=== PATIENT | male | born 1995 | race Caucasian/White ===

== ENCOUNTER 2017-01-13 23:42 | Emergency (ER) | payer OTHER ==
[~2017-01-13] VITALS: Ht 175.3 cm; Wt 77.3 kg
[~2017-01-13 23:42] MED LIST: BUPR100T8 PO; TOPI50TA16 PO
[2017-01-13 23:45] VITALS: TEMP 37.1; Ht 175.3 cm; Wt 77.3 kg
[2017-01-14 00:44] LABS: BASO % 0.3 %; BASO ABS # 0.02 K/uL (0-0.2); COMPLETE YES; EOS % 2.9 %; HEMATOCRIT 44.7 % (42-52); LYMPH % 34.5 %; LYMPH ABS # 2.53 K/uL (1.2-3.4); MEAN CELL VOLUME 85.5 fL (80-100); MEAN CORPUSCULAR HEMOGLOBIN 29.6 pg (25-34); MEAN CORPUSCULAR HGB CONC 34.7 g/dl (32-36); MEAN PLATELET VOLUME 8.8 fL (7.4-10.4); MONO % 6.1 %; NEUT % 56.2 %; PLATELET COUNT 206 K/uL (130-400); RED BLOOD COUNT 5.23 M/uL (4.7-6.1); WHITE BLOOD COUNT 7.33 K/uL (4.8-10.8)
[2017-01-14 01:03] LABS: BUN/CREATININE RATIO 11.8 (10-20); CREATININE 1.4 mg/dl (0.60-1.40); MAGNESIUM 2.1 mg/dl (1.8-2.4); POTASSIUM 3.7 mmol/L (3.5-5.1)
[2017-01-14 01:13] LABS: THYROID STIMULATING HORMONE 1.24 uIu/ml (0.300-4.500)
--- NOTE | 2017-01-14 01:34 | EMERGENCY ROOM VISIT NOTE ---
History First contact with patient: 00:05 Chief Complaint: NEURO SYMPTOMS Stated Complaint: DIZZINESS,LOSS OF COORDINATION,TINGLING LT SIDE Nursing Triage Summary: Pt reports that he restarted his topamax today. pt has been off of it for 2 years. c/o intermittent numbness in face, left arm, left leg and back. pt also reports trouble walking. hx bipolar. History of Present Illness The patient is a 21 year old male who presents to the Emergency Room with complaints of numbness, tingling and difficulty concentrating after taking 100 mg of Topamax for the first time tonight. Patient states his PCP started this on him today for his bipolar. He's never taken this medication before. No other new foods soaps or detergents. Patient denies chest pain, dyspnea, localized weakness, loss of vision, cold symptoms, fever, chills, confusion, abdominal pain, rashes. He is tolerating by mouth fluids and food. Review of Systems See HPI for pertinent positives & negatives. A total of 10 systems reviewed and were otherwise negative. Past Medical/Surgical History Medical Problems: (1) Bipolar disorder Family History No pertinent family history Social History Smoking Status: Never Smoker Alcohol Use: none Drug Use: none Housing Status: lives alone Current/Historical Medications Scheduled Topiramate (Topamax), 50 MG PO QAM Topiramate (Topamax), 100 MG PO HS Physical Exam Vital Signs Date Time Temp Pulse Resp B/P (MAP) Pulse Ox O2 Delivery O2 Flow Rate FiO2 01/14/17 00:54 58 01/14/17 00:38 Room Air 01/14/17 00:38 53 12 135/94 97 52 151/111 60 164/101 01/13/17 23:45 37.1 58 18 149/111 97 Room Air Physical Exam VITALS: Vitals are noted on the nurse's note and reviewed by myself. Vital signs stable. GENERAL: Pleasant male answering questions appropriately, in no acute distress, nondiaphoretic, well-developed well-nourished. SKIN: The skin was without rashes, erythema, edema, or bruising. There is no tenting of the skin. Capillary reflex less than 2 seconds. HEAD: Normocephalic atraumatic. EARS: External auditory canals clear, tympanic membranes pearly lai without erythema or effusion bilaterally. EYES: Pupils equal round and reactive to light and accommodation. Conjunctivae without injection, sclerae without icterus. Extraocular movements intact. NOSE: Patent, turbinates without inflammation or discharge. MOUTH: Mucous membranes moist. Pharynx without erythema or exudate. Uvula midline. Airway patent. Tongue does not deviate. NECK: Supple without nuchal rigidity. No lymphadenopathy. No thyromegaly. Cervical spine is nontender. No JVD. HEART: Regular rate and rhythm without murmurs gallops or rubs. LUNGS: Clear to auscultation bilaterally without wheezes, rales or rhonchi. No dullness to percussion. No retractions or accessory muscle use. ABDOMEN: Positive bowel sounds x 4. Normal tympanic percussion. Soft, nontender, without masses or organomegaly. Chacon sign negative. No guarding or rebound tenderness. MUSCULOSKELETAL: No muscle atrophy, erythema, or edema noted. NEURO: Patient was alert and oriented to person place and time. Normal sensation to light and sharp touch. No focal neurological deficits. Cranial nerves II-12 grossly intact. No pronator drift. Cerebellar exam intact. Medical Decision & Procedures Laboratory Results 01/14/17 00:30 Red Blood Count 5.23, Mean Corpuscular Volume 85.5, Mean Corpuscular Hemoglobin 29.6, Mean Corpuscular Hemoglobin Concent 34.7, Mean Platelet Volume 8.8, Neutrophils (%) (Auto) 56.2, Lymphocytes (%) (Auto) 34.5, Monocytes (%) (Auto) 6.1, Eosinophils (%) (Auto) 2.9, Basophils (%) (Auto) 0.3, Neutrophils # (Auto) 4.12, Lymphocytes # (Auto) 2.53, Monocytes # (Auto) 0.45, Eosinophils # (Auto) 0.21, Basophils # (Auto) 0.02 01/14/17 00:30 Test 01/14/17 00:30 White Blood Count 7.33 K/uL (4.8-10.8) Red Blood Count 5.23 M/uL (4.7-6.1) Hemoglobin 15.5 g/dL (14.0-18.0) Hematocrit 44.7 % (42-52) Mean Corpuscular Volume 85.5 fL (80-100) Mean Corpuscular Hemoglobin 29.6 pg (25-34) Mean Corpuscular Hemoglobin Concent 34.7 g/dl (32-36) Platelet Count 206 K/uL (130-400) Mean Platelet Volume 8.8 fL (7.4-10.4) Neutrophils (%) (Auto) 56.2 % Lymphocytes (%) (Auto) 34.5 % Monocytes (%) (Auto) 6.1 % Eosinophils (%) (Auto) 2.9 % Basophils (%) (Auto) 0.3 % Neutrophils # (Auto) 4.12 K/uL (1.4-6.5) Lymphocytes # (Auto) 2.53 K/uL (1.2-3.4) Monocytes # (Auto) 0.45 K/uL (0.11-0.59) Eosinophils # (Auto) 0.21 K/uL (0-0.5) Basophils # (Auto) 0.02 K/uL (0-0.2) RDW Standard Deviation 39.0 fL (36.4-46.3) RDW Coefficient of Variation 12.5 % (11.5-14.5) Immature Granulocyte % (Auto) 0.0 % Immature Granulocyte # (Auto) 0.00 K/uL (0.00-0.02) Anion Gap 3.0 mmol/L (3-11) Est Creatinine Clear Calc Drug Dose 82.1 ml/min Estimated GFR () 81.5 Estimated GFR (Non- 70.3 BUN/Creatinine Ratio 11.8 (10-20) Calcium Level 9.0 mg/dl (8.5-10.1) Magnesium Level 2.1 mg/dl (1.8-2.4) Total Bilirubin 0.8 mg/dl (0.2-1) Direct Bilirubin 0.2 mg/dl (0-0.2) Aspartate Amino Transf (AST/SGOT) 33 U/L (15-37) Alanine Aminotransferase (ALT/SGPT) 24 U/L (12-78) Alkaline Phosphatase 67 U/L (45-117) Total Protein 7.5 gm/dl (6.4-8.2) Albumin 4.3 gm/dl (3.4-5.0) Thyroid Stimulating Hormone (TSH) 1.240 uIu/ml (0.300-4.500) ED Course Prior records/ancillary studies reviewed and summarized above. Nursing notes reviewed. Additional history obtained from friends The patient's history was concerning for numbness, tingling, difficulty concentrating after taking Topamax. Differential diagnosis: Etiologies such as side effects of medication, metabolic, infection, hypo/ hyperglycemia, electrolyte abnormalities, cardiac sources, intracerebral event, toxicologic, neurologic, as well as others were entertained. Physical examination: As above. ER treatment provided: IV Lock On reassessment the patient felt better. Diagnostics interpretation by me: The labs revealed no worrisome leukocytosis or electrolyte abnormality. Exam and history seem consistent with side effect of Topamax. he was informed that he should start slowly on this medication and gradually increase on this over time. He was advised to call his family care doctor this morning for follow-up and not to take this medication until cleared by the family care doctor. He was advised to return to the ER immediately for localized weakness, chest pain, difficulty breathing, worsening signs or symptoms or as needed. By the evaluation outlined above emergent etiologies such as infection, electrolyte abnormalities, cardiac sources, intracerebral event, toxologic, neurologic, abnormalities blood glucose, metabolic, as well as others were deemed relatively unlikely. The pt informed about the findings as listed above. All questions were answered and pleased with the treatment. Return instructions were outlined and the patient was discharged in stable condition. Case reviewed with my attending Referral: The patient was referred back to primary care physician for follow-up in 2 to 3 days for a recheck of the current condition. Medical Decision As above Medication Reconcilliation Current Medication List: was personally reviewed by me Blood Pressure Screening Patient's blood pressure: Elevated blood pressure Blood pressure disposition: Elevated BP felt to be situational Impression Primary Impression: Tingling Additional Impression: Medication side effect Departure Information Dispostion Home / Self-Care Condition GOOD Forms WORK / SCHOOL INSTRUCTIONS, HOME CARE DOCUMENTATION FORM, IMPORTANT VISIT INFORMATION Patient Instructions My [facility] Metabol[facility], Topiramate tablets Additional Instructions Do not take anymore Topamax until seen by the family care doctor. You should be slowly increased on this medication over time. Your symptoms will most likely be present for a few more days or up to a week. Follow-up family care doctor in one to 2 days, call for an appointment. Return to ER sooner for chest pain, difficulty breathing, worsening signs or symptoms or as needed. Problem Qualifiers Additional Impression: Medication side effect Encounter type: initial encounter Qualified Codes: T88.7XXA - Unspecified adverse effect of drug or medicament, initial encounter
[2017-01-14 01:35] VITALS: BP 136/82; PULSE 63; O2SAT 96
== END 2017-01-14 01:35 | disposition home or self-care (01) ==
LOC: C.EDB 23:44 → C.EDA 01-14 01:35
DX: R20.2 Paresthesia of skin (principal); T88.7XXA Unspecified adverse effect of drug or medicament, initial encounter; F31.9 Bipolar disorder, unspecified

== ENCOUNTER 2017-01-17 02:20 | Emergency (ER) | payer OTHER ==
[~2017-01-17] VITALS: Ht 175.3 cm; Wt 78.0 kg
[~2017-01-17 02:20] MED LIST changes: -BUPR100T8 PO
[2017-01-17 02:23] VITALS: TEMP 36.8; Ht 175.3 cm; Wt 78.0 kg
[2017-01-17 02:53] LABS: BASO % 0.3 %; BASO ABS # 0.02 K/uL (0-0.2); COMPLETE YES; HEMATOCRIT 47.3 % (42-52); IG% 0.2 %; LYMPH % 34.8 %; LYMPH ABS # 2.23 K/uL (1.2-3.4); MEAN CELL VOLUME 84.2 fL (80-100); MEAN CORPUSCULAR HEMOGLOBIN 30.4 pg (25-34); MEAN CORPUSCULAR HGB CONC 36.2 g/dl (32-36); MEAN PLATELET VOLUME 9.1 fL (7.4-10.4); MONO % 6.3 %; NEUT % 55.4 %; PLATELET COUNT 236 K/uL (130-400); RED BLOOD COUNT 5.62 M/uL (4.7-6.1)
[2017-01-17 02:55] LABS: URINE APPEARANCE CLEAR (CLEAR); URINE BILIRUBIN NEG (NEG); URINE COLOR YELLOW; URINE NITRITE NEG (NEG); URINE SPECIFIC GRAVITY 1.011 (1.000-1.030); UROBILINOGEN NEG (NEG)
[2017-01-17 02:56] VITALS: O2SAT 96
[2017-01-17 03:02] LABS: MANUAL MICROSCOPIC REQUIRED? NO; REVIEW REQ? NO
[2017-01-17 03:13] LABS: BUN/CREATININE RATIO 12.7 (10-20); CALCIUM 9.5 mg/dl (8.5-10.1); CREATININE 1.2 mg/dl (0.60-1.40); POTASSIUM 3.4 mmol/L (3.5-5.1)
[2017-01-17 03:16] LABS: BENZODIAZEPINE, URINE NEG (NEG); COCAINE,URINE NEG (NEG); PHENCYCLIDINE, URINE NEG (NEG)
[2017-01-17] MEDS ORDERED: LORAZEPAM 2 MG/ML 1 ML VIAL IV STA (03:20)
[2017-01-17 03:25] LABS: THYROID STIMULATING HORMONE 1.47 uIu/ml (0.300-4.500)
[2017-01-17] MEDS ORDERED: LORAZEPAM 1 MG TAB SL STA (03:31)
--- NOTE | 2017-01-17 04:44 | EMERGENCY ROOM VISIT NOTE ---
History First contact with patient: 02:25 Chief Complaint: ANXIETY Stated Complaint: ANXIETY/PALPITATIONS History of Present Illness The patient is a 21 year old male who presents to the Emergency Room with complaints of feeling anxious for the past several days who is been trying to get in with behavioral health. Patient does not currently have a therapist or psychiatrist. He was placed on Topamax 100 mg by the family care for a mood stabilizer but had side effects to this. They then decreased to 50 mg but he was still having side effects. Patient still complains of difficulty concentrating and tingling. He states it is getting better then the other day when I saw him. Patient was hospitalized several years ago at the [facility]. Patient denies suicidal or homicidal ideations, delusions, hallucinations, chest pain, dyspnea, fever, chills, cough, congestion, localized weakness. He is tolerating by mouth fluids and food. Review of Systems See HPI for pertinent positives & negatives. A total of 10 systems reviewed and were otherwise negative. Past Medical/Surgical History Medical Problems: (1) Bipolar disorder Family History No pertinent family history Social History Smoking Status: Never Smoker Alcohol Use: none Drug Use: none Marital Status: single Housing Status: lives alone Occupation Status: employed Current/Historical Medications No Active Prescriptions or Reported Meds Allergies Coded Allergies: Acetaminophen (Verified Allergy, Unknown, ITCHING ALL OVER, 01/17/17) Oxycodone (Verified Allergy, Unknown, ITCHING ALL OVER, 01/17/17) Physical Exam Vital Signs Date Time Temp Pulse Resp B/P (MAP) Pulse Ox O2 Delivery O2 Flow Rate FiO2 01/17/17 04:40 54 18 128/81 96 Room Air 01/17/17 03:54 79 18 98 Room Air 01/17/17 02:56 57 18 126/82 96 Room Air 01/17/17 02:56 96 Room Air 01/17/17 02:41 60 18 98 Room Air 01/17/17 02:23 36.8 59 18 161/116 97 Room Air 01/17/17 02:22 65 Physical Exam VITALS: Vitals are noted on the nurse's note and reviewed by myself. Vital signs stable. GENERAL: Pleasant male anxious-appearing, in no acute distress, nondiaphoretic, well-developed well-nourished. SKIN: The skin was without rashes, erythema, edema, or bruising. There is no tenting of the skin. Capillary reflex less than 2 seconds. HEAD: Normocephalic atraumatic. EARS: External auditory canals clear, tympanic membranes pearly lai without erythema or effusion bilaterally. EYES: Pupils equal round and reactive to light and accommodation. Conjunctivae without injection, sclerae without icterus. Extraocular movements intact. NOSE: Patent, turbinates without inflammation or discharge. MOUTH: Mucous membranes moist. Pharynx without erythema or exudate. Uvula midline. Airway patent. Tongue does not deviate. NECK: Supple without nuchal rigidity. No lymphadenopathy. No thyromegaly. Cervical spine is nontender. No JVD. HEART: Regular rate and rhythm without murmurs gallops or rubs. LUNGS: Clear to auscultation bilaterally without wheezes, rales or rhonchi. No dullness to percussion. No retractions or accessory muscle use. ABDOMEN: Positive bowel sounds x 4. Normal tympanic percussion. Soft, nontender, without masses or organomegaly. Chacon sign negative. No guarding or rebound tenderness. MUSCULOSKELETAL: No muscle atrophy, erythema, or edema noted. NEURO: Patient was alert and oriented to person place and time. Normal sensation to light and sharp touch. No focal neurological deficits. Psych: Pleasant and cooperative with good thought process Medical Decision & Procedures Laboratory Results 01/17/17 02:40 Red Blood Count 5.62, Mean Corpuscular Volume 84.2, Mean Corpuscular Hemoglobin 30.4, Mean Corpuscular Hemoglobin Concent 36.2, Mean Platelet Volume 9.1, Neutrophils (%) (Auto) 55.4, Lymphocytes (%) (Auto) 34.8, Monocytes (%) (Auto) 6.3, Eosinophils (%) (Auto) 3.0, Basophils (%) (Auto) 0.3, Neutrophils # (Auto) 3.55, Lymphocytes # (Auto) 2.23, Monocytes # (Auto) 0.40, Eosinophils # (Auto) 0.19, Basophils # (Auto) 0.02 01/17/17 02:40 Test 01/17/17 02:35 01/17/17 02:40 Urine Color YELLOW Urine Appearance CLEAR (CLEAR) Urine pH 7.0 (4.5-7.5) Urine Specific [place] 1.011 (1.000-1.030) Urine Protein NEG (NEG) Urine Glucose (UA) NEG (NEG) Urine Ketones NEG (NEG) Urine Occult Blood NEG (NEG) Urine Nitrite NEG (NEG) Urine Bilirubin NEG (NEG) Urine Urobilinogen NEG (NEG) Urine Leukocyte Esterase NEG (NEG) Urine Opiates Screen NEG (NEG) Urine Methadone, Qualitative NEG (NEG) Urine Barbiturates NEG (NEG) Urine Phencyclidine (PCP) Level NEG (NEG) Ur Amphetamine/Methamphetamine NEG (NEG) MDMA (Ecstasy) Screen NEG (NEG) Urine Benzodiazepines Screen NEG (NEG) Urine Cocaine Metabolite NEG (NEG) Urine Marijuana (THC) NEG (NEG) White Blood Count 6.40 K/uL (4.8-10.8) Red Blood Count 5.62 M/uL (4.7-6.1) Hemoglobin 17.1 g/dL (14.0-18.0) Hematocrit 47.3 % (42-52) Mean Corpuscular Volume 84.2 fL (80-100) Mean Corpuscular Hemoglobin 30.4 pg (25-34) Mean Corpuscular Hemoglobin Concent 36.2 g/dl (32-36) Platelet Count 236 K/uL (130-400) Mean Platelet Volume 9.1 fL (7.4-10.4) Neutrophils (%) (Auto) 55.4 % Lymphocytes (%) (Auto) 34.8 % Monocytes (%) (Auto) 6.3 % Eosinophils (%) (Auto) 3.0 % Basophils (%) (Auto) 0.3 % Neutrophils # (Auto) 3.55 K/uL (1.4-6.5) Lymphocytes # (Auto) 2.23 K/uL (1.2-3.4) Monocytes # (Auto) 0.40 K/uL (0.11-0.59) Eosinophils # (Auto) 0.19 K/uL (0-0.5) Basophils # (Auto) 0.02 K/uL (0-0.2) RDW Standard Deviation 37.6 fL (36.4-46.3) RDW Coefficient of Variation 12.3 % (11.5-14.5) Immature Granulocyte % (Auto) 0.2 % Immature Granulocyte # (Auto) 0.01 K/uL (0.00-0.02) Anion Gap 6.0 mmol/L (3-11) Est Creatinine Clear Calc Drug Dose 95.8 ml/min Estimated GFR () 98.2 Estimated GFR (Non- 84.7 BUN/Creatinine Ratio 12.7 (10-20) Calcium Level 9.5 mg/dl (8.5-10.1) Total Bilirubin 1.2 mg/dl (0.2-1) Direct Bilirubin 0.3 mg/dl (0-0.2) Aspartate Amino Transf (AST/SGOT) 42 U/L (15-37) Alanine Aminotransferase (ALT/SGPT) 31 U/L (12-78) Alkaline Phosphatase 74 U/L (45-117) Total Protein 8.4 gm/dl (6.4-8.2) Albumin 4.8 gm/dl (3.4-5.0) Thyroid Stimulating Hormone (TSH) 1.470 uIu/ml (0.300-4.500) Medications Administered Medications (Trade) Dose Ordered Sig/Daniel Route Start Time Stop Time Status Last Admin Dose Admin Lorazepam (Ativan Tab) 1 mg NOW STAT SL 01/17/17 03:31 01/17/17 03:32 DC 01/17/17 03:39 1 MG ED Course Prior records/ancillary studies reviewed. Triage Nursing notes reviewed. The patient's history was concerning for possible psychiatric disturbance. Differential diagnosis: Etiologies such as mood disorder, infection, hypoglycemia, electrolyte abnormalities, cardiac sources, intracerebral event, toxicologic, neurologic, as well as others were entertained. Physical examination: The physical examination was performed as above and was completely benign. No emergent medical pathologies were noted. ER treatment provided: pt was observed On reassessment the patient felt better. Diagnostic interpretation by me: EKG: Normal sinus, normal intervals, no acute ST-T wave changes, rate of 54. Impression sinus bradycardia interpreted by myself The labs revealed euthyroid. Stable H&H Consultation: A consultation was placed with mental health. The patient was evaluated by mental health in the emergency department and they felt admission was not warranted. The patient was given information for [facility] for referral. Patient has seen Dr. Kenny in the past. Exam and history seem consistent with anxiety. Patient was advised not to take Topamax in the future unless recommended by the psychiatrist. Patient's been having side effects at this medication. Behavioral health evaluated the patient states he's safe to be discharged home. I felt this is resolved. He was not at risk for hurting himself or any other people. He had a good thought process. Patient was advised to follow-up with Dr. kenny or here in the ER sooner for thoughts of hurting himself, depression, anxiety, chest pain, dyspnea , worsening signs or symptoms or as needed.By the evaluation outlined above emergent etiologies such as infection, hypoglycemia, electrolyte abnormalities, cardiac sources, intracerebral event, toxicologic, neurologic,as well as others were deemed relatively unlikely. It appears the patient is dealing with a psychiatric disturbance. The pt informed about the findings as listed above. All questions were answered and pleased with the treatment. Return instructions were outlined and the patient was discharged in stable condition. Referral: Outpatient services were arranged by psychiatry. The patient will follow-up this week or return to the emergency department if symptoms worsen. and The patient was referred back to their primary care physician for follow-up in 2 to 3 days for a recheck of the current condition. case reviewed by my Attending. Medical Decision As above Impression Primary Impression: Acute anxiety Departure Information Dispostion Home / Self-Care Condition GOOD Prescriptions No Active Prescriptions or Reported Meds Referrals No Doctor, Assigned (PCP) Patient Instructions My [facility] Additional Instructions Stop your Topamax. Follow-up with psychiatry. Please contact Dr. kenny. Behavioral health gave either contact information. Rest and drink plenty of fluids as tolerated. Continue current medications. Return to the ER immediately for worsening or persistent anxiety, abdominal pain , vomiting, fevers, chest pains, difficulty breathing, worsening of your condition, or as needed. Follow up with your primary physician in 2-3 days for a recheck of your current condition.
[2017-01-17 05:21] VITALS: BP 104/69; PULSE 56; O2SAT 96
[2017-01-18] MEDS ORDERED: TOPI100T20 PO (22:44)
[2017-01-18] MEDS ORDERED: TPM100 PO (22:44)
== END 2017-01-17 05:22 | disposition home or self-care (01) ==
LOC: EDBD 02:20 → C.EDA 02:23
DX: F41.9 Anxiety disorder, unspecified (principal); R00.2 Palpitations; F31.9 Bipolar disorder, unspecified

== ENCOUNTER 2017-01-18 01:30 | Emergency (ER) | payer OTHER ==
[~2017-01-18] VITALS: Ht 175.3 cm; Wt 75.5 kg
[2017-01-18 01:38] VITALS: TEMP 36.6; Ht 175.3 cm; Wt 75.5 kg
[2017-01-18 03:33] VITALS: BP 155/110; PULSE 72; O2SAT 99
--- NOTE | 2017-01-18 03:47 | EMERGENCY ROOM VISIT NOTE ---
History First contact with patient: 02:09 Chief Complaint: OTHER COMPLAINT Stated Complaint: SIDE EFFECTS OF 2 MEDS-HEART PALPITATIONS,CONGESTI History of Present Illness The patient is a 21 year old male who presents to the Emergency Room with complaints of ongoing anxiety, difficulty concentrating, intermittent numbness and tingling the past several days. Patient states he does not feel any better from the last visit from yesterday. Patient does not have a follow-up appointment yet with psychiatry. He was evaluated by mental health yesterday and and was advised to follow-up with some point and with Dr. Kenny who he has seen in the past. Patient was also informed yesterday by myself to quit taking the Topamax. He was also informed yesterday that symptoms from the Topamax could last a week or 2. Patient states he would like to be evaluated by behavioral health again. He states he would like to possibly be admitted to the medicine again. Patient denies suicidal or homicidal ideations. Patient states occasionally he sees things that aren't there but cannot specify anything in particular. Patient denies alcohol or drug use. Patient states his Lasix was up yesterday. Patient denies chest pain, dyspnea, fever, chills, cough, congestion, abdominal pain, head injury. Review of Systems See HPI for pertinent positives & negatives. A total of 10 systems reviewed and were otherwise negative. Past Medical/Surgical History Medical Problems: (1) Bipolar disorder Family History No pertinent family history Social History Smoking Status: Never Smoker Alcohol Use: none Drug Use: none Marital Status: single Housing Status: lives alone Occupation Status: employed Current/Historical Medications No Active Prescriptions or Reported Meds Physical Exam Vital Signs Date Time Temp Pulse Resp B/P (MAP) Pulse Ox O2 Delivery O2 Flow Rate FiO2 01/18/17 01:38 36.6 79 16 147/99 99 Room Air Physical Exam VITALS: Vitals are noted on the nurse's note and reviewed by myself. Vital signs stable. GENERAL: Pleasant male cooperative, in no acute distress, nondiaphoretic, well- developed well-nourished. SKIN: The skin was without rashes, erythema, edema, or bruising. There is no tenting of the skin. Capillary reflex less than 2 seconds. HEAD: Normocephalic atraumatic. EARS: External auditory canals clear, tympanic membranes pearly lai without erythema or effusion bilaterally. EYES: Pupils equal round and reactive to light and accommodation. Conjunctivae without injection, sclerae without icterus. Extraocular movements intact. NOSE: Patent, turbinates without inflammation or discharge. MOUTH: Mucous membranes moist. Pharynx without erythema or exudate. Uvula midline. Airway patent. Tongue does not deviate. NECK: Supple without nuchal rigidity. No lymphadenopathy. No thyromegaly. Cervical spine is nontender. No JVD. HEART: Regular rate and rhythm without murmurs gallops or rubs. LUNGS: Clear to auscultation bilaterally without wheezes, rales or rhonchi. No dullness to percussion. No retractions or accessory muscle use. ABDOMEN: Positive bowel sounds x 4. Normal tympanic percussion. Soft, nontender, without masses or organomegaly. Chacon sign negative. No guarding or rebound tenderness. MUSCULOSKELETAL: No muscle atrophy, erythema, or edema noted. NEURO: Patient was alert and oriented to person place and time. Normal sensation to light and sharp touch. No focal neurological deficits. Psych: Pleasant and cooperative alert and oriented to person place and time and situation Medical Decision & Procedures ED Course Prior records/ancillary studies reviewed. Triage Nursing notes reviewed. The patient's history was concerning for possible psychiatric disturbance. Differential diagnosis: Etiologies such as mood disorder, infection, attention seeking, hypoglycemia, electrolyte abnormalities, cardiac sources, intracerebral event, toxicologic, neurologic, as well as others were entertained. Physical examination: The physical examination was performed as above and was completely benign. No emergent medical pathologies were noted. ER treatment provided: Patient was observed On reassessment the patient felt better. Diagnostic interpretation by me: No diagnostic studies were performed based upon the history and physical examination. Labs from yesterday were reviewed. Stable H&H and euthyroid from yesterday. Consultation: A consultation was placed with Neto beatty. The patient was evaluated by mental health in the emergency department and they felt admission was not warranted. The patient will FU with [facility] outpatient. Patient signed ROR paperwork. Exam and history seem consistent with anxiety. Patient had no suicidal or homicidal ideations. He was well-appearing. He was cleared from behavioral health. This is the patient's third visit for the same complaint. He was strongly encouraged to see a therapist and psychiatrist and this was arranged by behavioral health services. He was advised to return to the ER really for hallucinations, delusions, suicidal or homicidal ideations, worsening signs or symptoms or as needed. By the evaluation outlined above emergent etiologies such as infection, hypoglycemia, electrolyte abnormalities, cardiac sources, intracerebral event, toxicologic, neurologic,as well as others were deemed relatively unlikely. It appears the patient is dealing with a psychiatric disturbance. The pt informed about the findings as listed above. All questions were answered and pleased with the treatment. Return instructions were outlined and the patient was discharged in stable condition. Referral: Outpatient services were arranged by psychiatry. The patient will follow-up this week or return to the emergency department if symptoms worsen. and The patient was referred back to their primary care physician for follow-up in 2 to 3 days for a recheck of the current condition. Case reviewed with my attending. Medical Decision As above Medication Reconcilliation Current Medication List: was personally reviewed by me Blood Pressure Screening Patient's blood pressure: Normal blood pressure Impression Primary Impression: Acute anxiety Departure Information Dispostion Home / Self-Care Condition GOOD Prescriptions No Active Prescriptions or Reported Meds Referrals No Doctor, Assigned (PCP) Patient Instructions My [facility] Additional Instructions Stop your Topamax. Follow-up with psychiatry. Please contact Dr. Kenny. Behavioral health will be contacting you today in order to make a follow-up appointment with your psychiatrist. Rest and drink plenty of fluids as tolerated. Continue current medications. Return to the ER immediately for worsening or persistent anxiety, abdominal pain , vomiting, fevers, chest pains, difficulty breathing, worsening of your condition, or as needed. Follow up with your primary physician in 2-3 days for a recheck of your current condition.
[2017-01-18] MEDS ORDERED: TPM100 PO (22:44)
[2017-01-18] MEDS ORDERED: TOPI100T20 PO (22:44)
== END 2017-01-18 04:16 | disposition home or self-care (01) ==
LOC: C.EDB 01:33 → C.EDA 04:16
DX: F41.9 Anxiety disorder, unspecified (principal); F31.9 Bipolar disorder, unspecified

== ENCOUNTER 2017-01-18 22:07 | Emergency (ER) | payer OTHER ==
[~2017-01-18] VITALS: Ht 175.3 cm; Wt 75.5 kg
[2017-01-18 22:07] VITALS: Ht 175.3 cm; Wt 75.5 kg
[2017-01-18] MEDS ORDERED: TOPI100T20 PO (22:44)
[2017-01-18] MEDS ORDERED: TPM100 PO (22:44)
[2017-01-18 22:53] LABS: BASO % 0.3 %; BASO ABS # 0.02 K/uL (0-0.2); COMPLETE YES; EOS % 0.5 %; HEMATOCRIT 44.6 % (42-52); IG% 0.1 %; LYMPH % 20.3 %; LYMPH ABS # 1.54 K/uL (1.2-3.4); MEAN CELL VOLUME 83.7 fL (80-100); MEAN CORPUSCULAR HEMOGLOBIN 29.8 pg (25-34); MEAN CORPUSCULAR HGB CONC 35.7 g/dl (32-36); MEAN PLATELET VOLUME 8.8 fL (7.4-10.4); MONO % 6.5 %; NEUT % 72.3 %; PLATELET COUNT 243 K/uL (130-400); RED BLOOD COUNT 5.33 M/uL (4.7-6.1); WHITE BLOOD COUNT 7.59 K/uL (4.8-10.8)
[2017-01-18 23:10] LABS: BUN/CREATININE RATIO 13.5 (10-20); CALCIUM 9.8 mg/dl (8.5-10.1); CREATININE 1.6 mg/dl (0.60-1.40); POTASSIUM 3.3 mmol/L (3.5-5.1)
[2017-01-18 23:21] LABS: ACETAMINOPHEN < 2 ug/ml (10-30); ALB/GLOB RATIO 1.4 (0.9-2); THYROID STIMULATING HORMONE 1.12 uIu/ml (0.300-4.500)
--- NOTE | 2017-01-18 23:21 | EMERGENCY ROOM VISIT NOTE ---
History Report prepared by Franny: Manju Medley Under the Supervision of: Dr. Maverick Avalos M.D. 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 The patient states that he was scaring his roommate tonight and she called the police. He reports that he was trying to explain something to her but he cannot remember what it was. He notes that the police were called and the police state that he resisted coming in to the ED. The patient states that he has not been having clear thoughts and states that his medications were recently changed to Topamax and Xanax and he is not sure if he hasn't taken them or if he overdosed on them. He complains of unclear thoughts and reports that he has not gotten much sleep in the last few days. The patient reports that he feels like he is having both auditory and visual hallucinations. 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 He denies any fever, chills, cough, congestion, nausea, and vomiting. The patient states that this feels like his previous manic episodes. The patient's mother states that the patient was not on any medication for years but was recently put back on Topamax and after feeling some side effects he has been decreasing the dose and has now stopped taking it. Source of History: patient, parent Onset: just PHARMACEUTICAL WORKER Position: other (mental health) Quality: other (manic) Associated Symptoms: + abdominal pain, + back pain, No fevers, No chills, No cough, No nausea, No vomiting Review of Systems See HPI for pertinent positives and negatives. ROS limited in the setting of acute susan. Past Medical & Surgical Medical Problems: (1) Bipolar disorder Family History No pertinent family history Social History Smoking Status: Never Smoker Alcohol Use: none Drug Use: none Marital Status: single Housing Status: lives alone Occupation Status: employed Current/Historical Medications Scheduled Topiramate (Topiramate), 100 MG PO QAM Topiramate (Topamax), 200 MG PO HS Allergies Coded Allergies: Acetaminophen (Verified Allergy, Unknown, ITCHING ALL OVER, 01/18/17) Oxycodone (Verified Allergy, Unknown, ITCHING ALL OVER, 01/18/17) Physical Exam Vital Signs Date Time Temp Pulse Resp B/P (MAP) Pulse Ox O2 Delivery O2 Flow Rate FiO2 01/19/17 01:49 78 20 154/101 98 Room Air 01/19/17 00:40 90 24 144/98 98 Room Air 01/18/17 22:07 37.2 118 20 107/88 95 Room Air Physical Exam GENERAL: Awake, alert, well-appearing, in no distress HENT: Normocephalic, atraumatic. Oropharynx unremarkable. EYES: Normal conjunctiva. Sclera non-icteric. NECK: Supple. No nuchal rigidity. FROM. No JVD. RESPIRATORY: Clear to auscultation. CARDIAC: Regular rate, normal rhythm. Extremities warm and well perfused. Pulses equal. ABDOMEN: Soft, non-distended. No tenderness to palpation. No rebound or guarding. No masses. RECTAL: Deferred. MUSCULOSKELETAL: Chest examination reveals no tenderness. The back is symmetrical on inspection without obvious abnormality. There is no CVA tenderness to palpation. No joint edema. LOWER EXTREMITIES: Calves are equal size bilaterally and non-tender. No edema. No discoloration. NEURO: Normal sensorium. No sensory or motor deficits noted. SKIN: No rash or jaundice noted. PSYCH: Tangential incoherent thought process. Denies suicidal and homicidal ideation. Reports question of auditory and visual hallucinations. Medical Decision & Procedures Laboratory Results 01/18/17 22:38 Red Blood Count 5.33, Mean Corpuscular Volume 83.7, Mean Corpuscular Hemoglobin 29.8, Mean Corpuscular Hemoglobin Concent 35.7, Mean Platelet Volume 8.8, Neutrophils (%) (Auto) 72.3, Lymphocytes (%) (Auto) 20.3, Monocytes (%) (Auto) 6.5, Eosinophils (%) (Auto) 0.5, Basophils (%) (Auto) 0.3, Neutrophils # (Auto) 5.49, Lymphocytes # (Auto) 1.54, Monocytes # (Auto) 0.49, Eosinophils # (Auto) 0.04, Basophils # (Auto) 0.02 01/18/17 22:38 Test 01/18/17 22:38 01/19/17 01:40 White Blood Count 7.59 K/uL (4.8-10.8) Red Blood Count 5.33 M/uL (4.7-6.1) Hemoglobin 15.9 g/dL (14.0-18.0) Hematocrit 44.6 % (42-52) Mean Corpuscular Volume 83.7 fL (80-100) Mean Corpuscular Hemoglobin 29.8 pg (25-34) Mean Corpuscular Hemoglobin Concent 35.7 g/dl (32-36) Platelet Count 243 K/uL (130-400) Mean Platelet Volume 8.8 fL (7.4-10.4) Neutrophils (%) (Auto) 72.3 % Lymphocytes (%) (Auto) 20.3 % Monocytes (%) (Auto) 6.5 % Eosinophils (%) (Auto) 0.5 % Basophils (%) (Auto) 0.3 % Neutrophils # (Auto) 5.49 K/uL (1.4-6.5) Lymphocytes # (Auto) 1.54 K/uL (1.2-3.4) Monocytes # (Auto) 0.49 K/uL (0.11-0.59) Eosinophils # (Auto) 0.04 K/uL (0-0.5) Basophils # (Auto) 0.02 K/uL (0-0.2) RDW Standard Deviation 37.7 fL (36.4-46.3) RDW Coefficient of Variation 12.5 % (11.5-14.5) Immature Granulocyte % (Auto) 0.1 % Immature Granulocyte # (Auto) 0.01 K/uL (0.00-0.02) Anion Gap 12.0 mmol/L (3-11) Est Creatinine Clear Calc Drug Dose 71.8 ml/min Estimated GFR () 69.4 Estimated GFR (Non- 59.8 BUN/Creatinine Ratio 13.5 (10-20) Calcium Level 9.8 mg/dl (8.5-10.1) Total Bilirubin 1.6 mg/dl (0.2-1) Aspartate Amino Transf (AST/SGOT) 47 U/L (15-37) Alanine Aminotransferase (ALT/SGPT) 30 U/L (12-78) Alkaline Phosphatase 65 U/L (45-117) Total Protein 8.5 gm/dl (6.4-8.2) Albumin 4.9 gm/dl (3.4-5.0) Globulin 3.6 gm/dl (2.5-4.0) Albumin/Globulin Ratio 1.4 (0.9-2) Thyroid Stimulating Hormone (TSH) 1.120 uIu/ml (0.300-4.500) Salicylates Level < 1.7 mg/dl (2.8-20) Acetaminophen Level < 2 ug/ml (10-30) Ethyl Alcohol mg/dL < 3.0 mg/dl (0-3) Urine Color YELLOW Urine Appearance CLEAR (CLEAR) Urine pH 5.0 (4.5-7.5) Urine Specific [place] 1.023 (1.000-1.030) Urine Protein TRACE (NEG) Urine Glucose (UA) NEG (NEG) Urine Ketones TRACE (NEG) Urine Occult Blood NEG (NEG) Urine Nitrite NEG (NEG) Urine Bilirubin NEG (NEG) Urine Urobilinogen NEG (NEG) Urine Leukocyte Esterase NEG (NEG) Urine WBC (Auto) 1-5 /hpf (0-5) Urine RBC (Auto) 0-4 /hpf (0-4) Urine Hyaline Casts (Auto) 1-5 /lpf (0-5) Urine Epithelial Cells (Auto) 5-10 /lpf (0-5) Urine Bacteria (Auto) NEG (NEG) Laboratory results reviewed by mt ED Course 2240: The patient was evaluated in room A5. A complete history and physical exam was performed. 0204: I updated and reevaluated patient. He is disorganized and would like to leave but will not due to 302. 0230: The patient was signed out to Dr. Wilson at change of shift. Medical Decision I reviewed the patient's past medical history, medications, and the nursing notes as described above. Differential diagnosis includes manic episode, bipolar disorder, acute psychosis , toxic drug overdose. Patient is a 21-year-old gentleman with a past medical history of bipolar disorder who presents to emergency department for worsening confusion and behavior witnessed by his roommate as well as police placed the patient under 304. On arrival the patient appears disorganized with tangential and incoherent thoughts. On exam the patient appears clinically dry but otherwise unremarkable. Labs were remarkable for a KI with creatinine 1.6 which is consistent with the patient's dry appearance. Patient reports that he did not drink any water all day. Otherwise patient denies any SI or HI or attempts at self-harm, denies drug use or overdose overdose. Mother at the bedside reports that the patient had previously been on medications but stopped 2 years ago, and had been doing relatively well. However recently the patient was put on a trial of Topamax to help prevent episodes of susan. Patient reports that he thought he was having side effects and therefore tapered and stopped the medications on his own and has not taken anything for the past several days. Considering the rest of the patient's exam is unremarkable and his labs are likely due to dehydration in the setting of his susan will hydrate with IV fluids and recheck labs. If improved then will continue with plan for psychiatric placement. If not improved will require admission with psychiatry consultation. Medication Reconcilliation Current Medication List: was personally reviewed by me Blood Pressure Screening Patient's blood pressure: Normal blood pressure Blood pressure disposition: Did not require urgent referral Impression Primary Impression: Manic episode Scribe Attestation The scribe's documentation has been prepared under my direction and personally reviewed by me in its entirety. I confirm that the note above accurately reflects all work, treatment, procedures, and medical decision making performed by me. Departure Information Dispostion Still a Patient Referrals No Doctor, Assigned (PCP) Patient Instructions My [facility]
[2017-01-19] MEDS ORDERED: SODIUM CHLORIDE 0.9% 1000ML 2,000 ML IV STA (02:03)
[2017-01-19 02:09] LABS: URINE APPEARANCE CLEAR (CLEAR); URINE BILIRUBIN NEG (NEG); URINE COLOR YELLOW; URINE NITRITE NEG (NEG); URINE SPECIFIC GRAVITY 1.023 (1.000-1.030); UROBILINOGEN NEG (NEG); ZZUR CULT IF INDIC CLEAN CATCH NO
[2017-01-19 02:23] LABS: MANUAL MICROSCOPIC REQUIRED? NO; REVIEW REQ? NO
[2017-01-19 02:29] LABS: BENZODIAZEPINE, URINE NEG (NEG); COCAINE,URINE NEG (NEG); PHENCYCLIDINE, URINE NEG (NEG)
[2017-01-19] MEDS ORDERED: SODIUM CHLORIDE 0.9% 1000ML 1,000 ML IV STA (03:12)
[2017-01-19 06:17] LABS: BUN/CREATININE RATIO 15.3 (10-20); POTASSIUM 3.2 mmol/L (3.5-5.1)
[2017-01-19 06:19] LABS: ALB/GLOB RATIO 1.4 (0.9-2)
[2017-01-19] MEDS ORDERED: LORAZEPAM 2 MG/ML 1 ML VIAL IV STA (06:21)
--- NOTE | 2017-01-19 06:38 | EMERGENCY ROOM VISIT NOTE ---
ED Visit Note First contact with patient: 05:07 This case was signed out to me at change of shift. The patient had a second CMP obtained which showed improvement in his BUN/creatinine. The patient was felt to be medically cleared. Staff from [facility] [address]. was notified for evaluation. However, the patient became quite agitated. I ordered 2 mg of IV Ativan. As nursing staff were preparing to give this, the patient climbed on top of the bed and tried to climb up towards the TV and the window in the room. I was concerned for the patient's safety as well as the staff safety. He was restrained onto the bed mattress by security. He demanded discharge from the hospital. I explained to him that that would not be possible. He became more agitated. The patient was restrained in the prone position with 4 point leather restraints. The 302 was signed. The case will be signed out to Dr. Burns at change of shift awaiting bed placement.
[2017-01-19 06:46] VITALS: O2SAT 100
[2017-01-19 13:49] VITALS: BP 153/74; PULSE 72; TEMP 37.2; O2SAT 99
--- NOTE | 2017-01-19 15:04 | EMERGENCY ROOM VISIT NOTE ---
ED Visit Note First contact with patient: 07:14 21 yr old manic male arrives for evaluation of psychotic break last evening. Initially seen by Dr Avalos. 302 by police, given IV fluids, medically cleared and signed by Dr Wilson this morning. Signed out to me this morning awaiting placement. Patient had received ativan prior to my evaluation and restrained. Calm throughout and stable. Restraints removed. Patient walking around room and clearly psychotic. Accepted to [facility] for further treatment/ evaluation.
[2017-01-24 16:35] LABS: SYNTHETIC CANNABINOIDS QL URIN NEGATIVE (Negative)
== END 2017-01-19 13:50 ==
LOC: EDBD 22:07 → C.EDA 22:08
DX: F31.9 Bipolar disorder, unspecified (principal); Z79.899 Other long term (current) drug therapy

== ENCOUNTER 2017-10-26 21:24 | Emergency (ER) | payer OTHER ==
[~2017-10-26] VITALS: Ht 167.6 cm; Wt 65.0 kg
[~2017-10-26 21:24] MED LIST changes: +TOPI100T20 PO; -TOPI50TA16 PO; +TPM100 PO
[2017-10-26 21:28] VITALS: TEMP 37; Ht 167.6 cm; Wt 65.0 kg
--- NOTE | 2017-10-26 21:33 | EMERGENCY ROOM VISIT NOTE ---
History Report prepared by Franny: Tarun Beyer Under the Supervision of: Dr. Jose Urena D.O. First contact with patient: 21:25 Stated Complaint: MHID EVAL History of Present Illness The patient is a 22 year old who presents to the Emergency Room brought in by EMS with request of episodic general mental health evaluation [employer]W OPERATOR. Per EMS the patient seems to have obsessive compulsive tendencies. They report that he counted how many seconds it took to arrive to the ED from the area he was found. The patient was found staring at a building. They report that the patient is slow to respond to questions. The patient denies any fevers, cough, headaches, nausea, or vomiting. The patient states that he is supposed to take Topamax, for bipolar disorder. He notes that he has seen Dr. Zacarias Buchanan, though is not sure when he was last evaluated by him. He denies any tobacco or alcohol use. Source of History: patient, EMS Onset: [employer]W OPERATOR Position: other (general ) Quality: other (mental health evaluation) Timing: other (episodic) Associated Symptoms: No fevers, No headache, No cough, No nausea, No vomiting Review of Systems See HPI for pertinent positives & negatives. A total of 10 systems reviewed and were otherwise negative. Past Medical & Surgical Medical Problems: (1) Bipolar disorder Family History No pertinent family history Social History Smoking Status: Never Smoker Alcohol Use: none Drug Use: none Marital Status: single Housing Status: lives alone Occupation Status: employed Current/Historical Medications Scheduled Topiramate (Topiramate), 100 MG PO AMPM Allergies Coded Allergies: Acetaminophen (Verified Allergy, Unknown, ITCHING ALL OVER, 01/18/17) Oxycodone (Verified Allergy, Unknown, ITCHING ALL OVER, 01/18/17) Physical Exam Vital Signs Date Time Temp Pulse Resp B/P (MAP) Pulse Ox O2 Delivery O2 Flow Rate FiO2 10/27/17 00:00 68 16 140/87 98 Room Air 10/26/17 21:28 37.0 68 16 158/92 98 Room Air Physical Exam GENERAL: Patient is awake, alert, and in no acute distress. Patient is resting comfortably and anxious and guarded appearing. EYES: The conjunctivae are clear. The pupils are round and reactive. EARS, NOSE, MOUTH AND THROAT: The nose is without any evidence of any deformity. Mucous membranes are moist tongue is midline NECK: The neck is nontender and supple. RESPIRATORY: Normal respiratory effort is noted there is no evidence of wheezing rhonchi or rales CARDIOVASCULAR: Regular rate and rhythm noted there no murmurs rubs or gallops normal S1 normal S2 GASTROINTESTINAL: The abdomen is soft. Bowel sounds are present in all quadrants. Abdomen is nontender MUSCULOSKELETAL/EXTREMITIES: There is no evidence of gross deformity full range of motion is noted in the hips and shoulders SKIN: There is no obvious evidence of any rash. There are no petechiae, pallor or cyanosis noted. NEUROLOGIC: Patient is awake alert and oriented x3. PSYCHIATRIC: Makes poor eye contact. Flat affect. Patient appears guarded. Medical Decision & Procedures ER Provider Diagnostic Interpretation: Radiology results as stated below per my review and radiologist interpretation: CHEST ONE VIEW PORTABLE CLINICAL HISTORY: 22 years-old Male presenting with Overdose. TECHNIQUE: Portable upright AP view of the chest was obtained. COMPARISON: 11/27/2014. FINDINGS: Cardiomediastinal silhouette normal. No focal opacity. No large effusion or pneumothorax. Osseous structures normal. Upper abdomen normal. IMPRESSION: 1. No acute cardiopulmonary disease. Electronically signed by: Varun Joyce M.D. 10/26/2017 10:00 PM Dictated Date/Time: 10/26/2017 10:00 PM Laboratory Results 10/26/17 21:56 Red Blood Count 5.25, Mean Corpuscular Volume 82.9, Mean Corpuscular Hemoglobin 30.3, Mean Corpuscular Hemoglobin Concent 36.6, Mean Platelet Volume 8.9, Neutrophils (%) (Auto) 72.2, Lymphocytes (%) (Auto) 21.3, Monocytes (%) (Auto) 5.6, Eosinophils (%) (Auto) 0.7, Basophils (%) (Auto) 0.1, Neutrophils # (Auto) 5.20, Lymphocytes # (Auto) 1.53, Monocytes # (Auto) 0.40, Eosinophils # (Auto) 0.05, Basophils # (Auto) 0.01 10/26/17 21:56 Test 10/26/17 21:56 10/26/17 23:20 White Blood Count 7.20 K/uL (4.8-10.8) Red Blood Count 5.25 M/uL (4.7-6.1) Hemoglobin 15.9 g/dL (14.0-18.0) Hematocrit 43.5 % (42-52) Mean Corpuscular Volume 82.9 fL (80-100) Mean Corpuscular Hemoglobin 30.3 pg (25-34) Mean Corpuscular Hemoglobin Concent 36.6 g/dl (32-36) Platelet Count 248 K/uL (130-400) Mean Platelet Volume 8.9 fL (7.4-10.4) Neutrophils (%) (Auto) 72.2 % Lymphocytes (%) (Auto) 21.3 % Monocytes (%) (Auto) 5.6 % Eosinophils (%) (Auto) 0.7 % Basophils (%) (Auto) 0.1 % Neutrophils # (Auto) 5.20 K/uL (1.4-6.5) Lymphocytes # (Auto) 1.53 K/uL (1.2-3.4) Monocytes # (Auto) 0.40 K/uL (0.11-0.59) Eosinophils # (Auto) 0.05 K/uL (0-0.5) Basophils # (Auto) 0.01 K/uL (0-0.2) RDW Standard Deviation 37.5 fL (36.4-46.3) RDW Coefficient of Variation 12.5 % (11.5-14.5) Immature Granulocyte % (Auto) 0.1 % Immature Granulocyte # (Auto) 0.01 K/uL (0.00-0.02) Prothrombin Time 11.6 SECONDS (9.0-12.0) Prothromb Time International Ratio 1.1 (0.9-1.1) Activated Partial Thromboplast Time 25.0 SECONDS (21.0-31.0) Partial Thromboplastin Ratio 1.0 Anion Gap 7.0 mmol/L (3-11) Est Creatinine Clear Calc Drug Dose 92.5 ml/min Estimated GFR () 107.1 Estimated GFR (Non- 92.4 BUN/Creatinine Ratio 11.7 (10-20) Osmolality 293 mOsm/kg (280-300) Calcium Level 9.3 mg/dl (8.5-10.1) Total Bilirubin 1.1 mg/dl (0.2-1) Direct Bilirubin 0.3 mg/dl (0-0.2) Aspartate Amino Transf (AST/SGOT) 43 U/L (15-37) Alanine Aminotransferase (ALT/SGPT) 25 U/L (12-78) Alkaline Phosphatase 69 U/L (45-117) Total Creatine Kinase 548 U/L (39-308) Creatine Kinase MB 7.2 ng/ml (0.5-3.6) Creatine Kinase MB Ratio 1.3 (0-3.0) Troponin I < 0.015 ng/ml (0-0.045) Total Protein 8.2 gm/dl (6.4-8.2) Albumin 4.7 gm/dl (3.4-5.0) Lipase 82 U/L (73-393) Salicylates Level < 1.7 mg/dl (2.8-20) Acetaminophen Level < 2 ug/ml (10-30) Ethyl Alcohol mg/dL < 3.0 mg/dl (0-3) Urine Color YELLOW Urine Appearance CLEAR (CLEAR) Urine pH 5.5 (4.5-7.5) Urine Specific [place] 1.018 (1.000-1.030) Urine Protein NEG (NEG) Urine Glucose (UA) NEG (NEG) Urine Ketones 1+ (NEG) Urine Occult Blood NEG (NEG) Urine Nitrite NEG (NEG) Urine Bilirubin NEG (NEG) Urine Urobilinogen NEG (NEG) Urine Leukocyte Esterase NEG (NEG) Urine Opiates Screen NEG (NEG) Urine Methadone, Qualitative NEG (NEG) Urine Barbiturates NEG (NEG) Urine Phencyclidine (PCP) Level NEG (NEG) Ur Amphetamine/Methamphetamine NEG (NEG) MDMA (Ecstasy) Screen NEG (NEG) Urine Benzodiazepines Screen NEG (NEG) Urine Cocaine Metabolite NEG (NEG) Urine Marijuana (THC) NEG (NEG) Laboratory results per my review. Medications Administered Medications (Trade) Dose Ordered Sig/Daniel Route Start Time Stop Time Status Last Admin Dose Admin Potassium Chloride (Klor-Con M10) 20 meq NOW STAT PO 10/26/17 23:39 10/26/17 23:40 DC 10/27/17 00:14 20 MEQ ED Course 2128: The patient was evaluated in room A6. A complete history and physical examination were performed. 2338: Ordered Potassium-Chloride 20 meq PO 0010: I spoke with COLLEEN Aj, psychiatric employment case manager. He reports that the patient stated that he is severely bipolar. He is not taking his medication. He just started with [facility] psychiatric [facility]. He has been to [place] twice. He would like to go back to [place]. He is currently voluntary. The patient is medically cleared. 0230: This patient was signed out to Dr. Burns at shift change. Medical Decision Prior records/ancillary studies reviewed. Triage Nursing notes reviewed. The patient's history was concerning for possible psychiatric disturbance. Differential diagnosis: Etiologies such as mood disorder, infection, hypoglycemia, electrolyte abnormalities, cardiac sources, intracerebral event, toxicologic, neurologic, as well as others were entertained. The patient is a 22-year-old male who presented to the emergency department for mental health evaluation. The patient was exhibiting very bizarre behavior. He was brought to the emergency department by prehospital personnel. I reviewed the patient's previous visits does show that he has some mental health history. He does not appear to have any signs of physical illness at this time. I discussed patient's laboratory and radiographic studies with him. He was treated with potassium for hypokalemia. The patient was medically cleared in the emergency department. He was evaluated by the mental health employment case manager. He was felt to be a good candidate for voluntary 201 inpatient treatment. The patient was offered medication for anxiety but did not wish to have any at this time. The patient initially would not open up to me but was more comfortable with the mental health employment case manager and did open up to him about some of the problems were occurring. The patient had a 201 filled out and signed by myself. A bed search is currently underway. The patient was signed out to Dr. Burns at change of shift. Please see his note for continuation of care and further disposition. Medication Reconcilliation Current Medication List: was personally reviewed by me Blood Pressure Screening Patient's blood pressure: Elevated blood pressure Blood pressure disposition: Elevated BP felt to be situational Impression Primary Impression: Psychosis Additional Impression: Bipolar disorder Scribe Attestation The scribe's documentation has been prepared under my direction and personally reviewed by me in its entirety. I confirm that the note above accurately reflects all work, treatment, procedures, and medical decision making performed by me. Departure Information Dispostion Still a Patient Referrals No Doctor, Assigned (PCP) Problem Qualifiers Primary Impression: Psychosis Psychosis type: unspecified psychosis type Qualified Codes: F29 - Unspecified psychosis not due to a substance or known physiological condition Additional Impression: Bipolar disorder Active/Remission status: remission status unspecified Qualified Codes: F31.9 - Bipolar disorder, unspecified
--- NOTE | 2017-10-26 22:02 | DIAGNOSTIC IMAGING REPORT ---
CHEST ONE VIEW PORTABLE CLINICAL HISTORY: 22 years-old Male presenting with Overdose. TECHNIQUE: Portable upright AP view of the chest was obtained. COMPARISON: 11/27/2014. FINDINGS: Cardiomediastinal silhouette normal. No focal opacity. No large effusion or pneumothorax. Osseous structures normal. Upper abdomen normal. IMPRESSION: 1. No acute cardiopulmonary disease. Electronically signed by: Varun Joyce M.D. 10/26/2017 10:00 PM Dictated Date/Time: 10/26/2017 10:00 PM
[2017-10-26 22:19] LABS: BASO % 0.1 %; BASO ABS # 0.01 K/uL (0-0.2); EOS % 0.7 %; EOS ABS # 0.05 K/uL (0-0.5); HEMATOCRIT 43.5 % (42-52); HEMOGLOBIN 15.9 g/dL (14.0-18.0); IG# 0.01 K/uL (0.00-0.02); LYMPH % 21.3 %; LYMPH ABS # 1.53 K/uL (1.2-3.4); MEAN CELL VOLUME 82.9 fL (80-100); MEAN CORPUSCULAR HEMOGLOBIN 30.3 pg (25-34); MEAN CORPUSCULAR HGB CONC 36.6 g/dl (32-36); MEAN PLATELET VOLUME 8.9 fL (7.4-10.4); MONO % 5.6 %; NEUT % 72.2 %; PLATELET COUNT 248 K/uL (130-400); RED CELL DISTRIBUTION WIDTH CV 12.5 % (11.5-14.5); RED CELL DISTRIBUTION WIDTH SD 37.5 fL (36.4-46.3)
[2017-10-26 22:27] LABS: INR 1.1 (0.9-1.1)
[2017-10-26 22:35] LABS: ALBUMIN 4.7 gm/dl (3.4-5.0); ALT/SGPT 25 U/L (12-78); AST/SGOT 43 U/L (15-37); BLOOD UREA NITROGEN 13 mg/dl (7-18); CALCIUM 9.3 mg/dl (8.5-10.1); CARBON DIOXIDE 24 mmol/L (21-32); CREATININE 1.11 mg/dl (0.60-1.40); GLUCOSE 124 mg/dl (70-99); LIPASE 82 U/L (73-393); POTASSIUM 2.9 mmol/L (3.5-5.1); SODIUM 138 mmol/L (136-145)
[2017-10-26 22:42] LABS: ALKALINE PHOSPHATASE 69 U/L (45-117); CKMB 7.2 ng/ml (0.5-3.6); TOTAL PROTEIN 8.2 gm/dl (6.4-8.2)
[2017-10-26] MEDS ORDERED: POTASSIUM CHLORIDE 10 MEQ TABCR PO STA (23:39)
[2017-10-27] MEDS ORDERED: LORAZEPAM 1 MG TAB ONE (02:23)
[2017-10-27] MEDS ORDERED: NURSING VERBAL MED ORDER ONE (02:30)
--- NOTE | 2017-10-27 06:42 | EMERGENCY ROOM VISIT NOTE ---
ED Visit Note First contact with patient: 04:09 22 yr old male with acute psychosis in setting of long mental health history. Initially evaluated/medically cleared by Dr Urena. Patient to be voluntary admission though awaiting acceptance to mental health facility. Signed out to me awaiting placement. Patient with increasing agitation and inability to sleep thus given Ativan SL. Patient able to fall asleep and without further issues. Signed out to Dr Melchor awaiting placement.
--- NOTE | 2017-10-27 11:54 | EMERGENCY ROOM VISIT NOTE ---
ED Visit Note First contact with patient: 07:15 Pt signed out to me at change of shift. History and Physical verified by me. Pt exhibiting split personality this morning. Has been preliminarily accepted at [facility].
[2017-10-27 14:39] VITALS: BP 147/85; PULSE 60; O2SAT 98
== END 2017-10-27 15:10 ==
LOC: EDBD 21:24 → C.EDA 21:25
DX: F29 Unspecified psychosis not due to a substance or known physiological condition (principal); F31.9 Bipolar disorder, unspecified; E87.6 Hypokalemia; R03.0 Elevated blood-pressure reading, without diagnosis of hypertension; Z79.899 Other long term (current) drug therapy; Z88.6 Allergy status to analgesic agent

== ENCOUNTER 2023-04-16 02:52 | Inpatient (IN) ==
[2023-04-16 03:58] LABS: Appearance Urine Clear (Clear); Bacteria Urine Automated Negative (Negative); Bilirubin Urine Negative (Negative); Blood Urine Negative (Negative); Color Urine Dark Yellow; Epithelial Cell Urine Auto 20-30 /lpf (0-5); Glucose Urine UA Negative (Negative); Ketones Urine 2+ (Negative); Leukocyte Esterase Urine Negative (Negative); Nitrite Urine Negative (Negative); Protein Urine 1+ (Negative); RBC Urine Automated 0-4 /hpf (0-4); Specific Gravity Urine 1.033 (1.000-1.030); Urobilinogen Urine Negative (Negative)
[2023-04-16 04:04] LABS: Basophils # (auto) 0.03 K/uL (0.00-0.20); Basophils % (auto) 0.2 %; Eosinophils # (auto) 0.08 K/uL (0.00-0.50); Eosinophils % (auto) 0.6 %; Hematocrit (blood only) 41.5 % (42.0-52.0); Immature Granulocytes # (auto) 0.06 K/uL (0.01-0.20); Immature Granulocytes % (auto) 0.4 %; Lymphocytes # (auto) 2.48 K/uL (1.20-3.40); Lymphocytes % (auto) 18.3 %; Mean Corpuscular Hemoglobin 29.5 pg (25.0-34.0); Mean Corpuscular Hgb Conc 33.7 g/dL (32.0-36.0); Mean Corpuscular Volume 87.6 fL (80.0-100.0); Monocytes # (auto) 1.06 K/uL (0.11-0.59); Monocytes % (auto) 7.8 %; Neutrophils # (auto) 9.86 K/uL (1.40-6.50); Neutrophils % (auto) 72.7 %; Platelet Count 163 K/uL (130-400); RDW Coefficient of Variation 13.4 % (11.5-14.5); RDW Standard Deviation 43.2 fL (36.4-46.3); Red Blood Count 4.74 M/uL (4.70-6.10); White Blood Count 13.57 K/ul (4.8-10.8)
[2023-04-16 04:07] LABS: Albumin Level 4.6 gm/dl (3.4-5.0); Bilirubin,Total 1.7 mg/dl (0.2-1.0); Calcium 9.4 mg/dl (8.6-10.3); Potassium 4.2 mmol/L (3.5-5.1)
[2023-04-16 04:13] LABS: Albumin Globulin Ratio 1.6 (0.9-2); BUN Creatinine Ratio 16.7 (10-20); Creatinine Clr Calc Pharmacy 121.7 ml/min; Est GFR (African American) 114.6 ml/min; Est GFR (Non-African American) 98.9 ml/min; Globulin 2.8 gm/dl (2.5-4.0); Total Protein 7.4 gm/dl (6.0-8.3)
[2023-04-16 04:22] LABS: Amphetamines+Metham, Urine Neg (Neg); Barbiturates, Urine Neg (Neg); Benzodiazepine, Urine Neg (Neg); Cocaine, Urine Neg (Neg); MDMA (Ecstacy), Urine Neg (Neg); Methadone, Urine Neg (Neg); Opiate, Urine Neg (Neg); Phencyclidine, Urine Neg (Neg)
[2023-04-16 04:31] LABS: Troponin I High Sensitivity 30.5 pg/ml (0-20)
[2023-04-16 04:40] LABS: Thyroid Stimulating Hormone 2.201 uIu/ml (0.300-4.500)
--- NOTE | 2023-04-16 04:43 | Emergency Department Note ---
Impression & Plan Altered mental status, Bipolar disorder, Elevated troponin level ED Provider Note CHIEF COMPLAINT: Head and neck pain HISTORY OF PRESENT ILLNESS: This 27-year-old patient presents to the emergency department via ambulance for evaluation of head and neck pain. The patient was found walking in the [facility]. The patient is unable to provide any other details about why he is in the emergency department. He is unable to answer questions appropriately. He states that he was exercising all throughout [place]. He notes that he has 2 cars, one of them is by [employer] in [place] and one is at [employer] in [place]. The patient states his keys were locked in the car, so he was unable to get in. He states he took the [employer] from [place] to [place] to retrieve his keys from [facility]. The patient denies any drug or alcohol use. He states the police found him and he had complained of some head and neck pain but denies any trauma. He states that he is not certain why he is here and notes that he is confused when asked questions. Patient denies any chest pain, shortness of breath, numbness, tingling, weakness, nausea/vomiting, headache, dizziness, or other concerning symptoms Of note, there has apparently been a below out in the community for this patient. He has apparently been missing for the past 2 days and [facility] locally here in [facility] have asked that we contact them if the patient shows up in the emergency department because they have been unable to find him. REVIEW OF SYSTEMS: A 10 system review of systems was performed with positives and pertinent negatives listed in the history of present illness. All other systems were reviewed and are negative. ALLERGIES: Oxycodone PHYSICAL EXAM: VITALS: Vitals are noted on the nurse's note and reviewed by myself. Vital signs stable. GENERAL: This is a 27-year-old, in no acute distress, nondiaphoretic, well- developed well-nourished. SKIN: The skin was without rashes, erythema, edema, or bruising. There is no tenting of the skin. Capillary refill less than 2 seconds. HEAD: Normocephalic atraumatic. EARS: External auditory canals clear, tympanic membranes pearly lai without erythema or effusion bilaterally. No hemotympanum. Negative whatley sign EYES: Pupils equal round and reactive to light and accommodation. Conjunctivae without injection, sclerae without icterus. Extraocular movements intact. NOSE: Patent, turbinates without inflammation or discharge. No sinus tenderness. MOUTH: Mucous membranes moist. Tonsils are not enlarged. Pharynx without erythema or exudate. Uvula midline. Airway patent. Tongue does not deviate. NECK: Supple without nuchal rigidity. No lymphadenopathy. No thyromegaly. Cervical spine is nontender. No JVD. HEART: Regular rate and rhythm without murmurs gallops or rubs. LUNGS: Clear to auscultation bilaterally without wheezes, rales or rhonchi. No retractions or accessory muscle use. ABDOMEN: Positive bowel sounds x 4. Soft, nontender, without masses or organomegaly. Chacon sign negative. No guarding or rebound tenderness. MUSCULOSKELETAL: No muscle atrophy, erythema, or edema noted. Full range of motion without joint tenderness in all extremities. No tenderness to palpation. Normal gait. Strength 5/5 throughout. NEURO: Patient was alert and oriented to person place and time. Normal sensation to light and sharp touch. Deep tendon reflexes 2+ throughout. No focal neurological deficits. An order was placed for continuous diagnostic cardiac sonographer. The monitor showed a normal sinus rhythm at a ventricular rate of 81 bpm, per my interpretation. EKG, per my interpretation: Normal sinus rhythm with sinus arrhythmia with a ventricular rate of [address] elevation or depression. No T wave inversion. No significant change when compared to EKG from 12/06/2017 EMERGENCY DEPARTMENT COURSE: The patient was seen and evaluated as above. The patient is clearly altered. He is not making sense when asked to provide the history. He is oriented to person and place, but is unable to note the details surrounding going missing over the past few days. Given the altered mental status, we did elect perform the above mentioned work-up. IV access was obtained, labs were drawn. Patient was hydrated with IV fluids. CT imaging performed reviewed by myself and radiologist as noted. Labs were reviewed. Mild leukocytosis of 13.57. No anemia or thrombocytopenia. INR 1.1. Renal function and electrolytes without significant abnormality. Transaminases are elevated. Total bilirubin is 1.7. Troponin elevated at 30. TSH 2.2. Urinalysis positive for 2+ ketones, no evidence of infection or blood. Urine drug screen negative. Alcohol negative Repeat troponin test is slightly more elevated at 34.1. Chest x-ray as noted I did consult with the ED immigration case worker who are familiar with this patient. They did contact the [facility] coordinator. I do believe that the patient's psychiatric conditions are not well managed. Unclear why the troponin is elevated. No EKG changes suggestive ischemia. [facility] I spoke with Dr. Keli Marr. He did agree to accept the patient for admission. Please see hospitalist dictation regarding ongoing management care of this patient Differential diagnosis includes Infection, hypoglycemia, electrolyte abnormalities, overdose, toxicologic, cardiac sources, intracerebral event, neurologic, trauma, psychiatric condition, as well as other pathologies. I attest that I have personally reviewed the patient's current medication list. Patient was found to have normal blood pressure on screening and does not require follow-up. The chart was completed utilizing Jam[employer] voice recognition software. Grammatical errors, random word insertions, pronoun errors, and incomplete sente nces are an occasional consequence of this system due to software limitations, ambient noise, and hardware issues. Any formal questions or concerns about the content, text, or information contained within the body of this dictation should be directly addressed to the provider for clarification. Past Med/Surg History Medical History Bipolar disorder (03/18/13) Depression Social History Smoking Status: Never smoker Tobacco Type: Cigarettes Preferred Language: [place] Helen[place] Feels Safe at Home: No Gender Identity: Male Allergies Allergies Allergy/AdvReac Type Severity Reaction Status Date / Time oxycodone Allergy Unknown ITCHING Verified 03/27/19 18:24 ALL OVER Home Meds Home Medications Medication Instructions Recorded Confirmed Vitamin D3 2,000 units PO DAILY 03/27/19 12/17/22 divalproex 500 mg tablet,delayed 1,000 mg PO DAILY 12/17/22 12/17/22 release lumateperone 42 mg capsule 42 mg PO DAILY 12/17/22 12/17/22 (Caplyta) olanzapine 15 mg tablet 15 mg PO HS 12/17/22 12/17/22 Results & Data (ED) Vital Signs Vital Signs - 24 hr 04/16/23 03:00 04/16/23 03:39 04/16/23 05:19 Temperature 37.6 C H Temperature Source Oral Pulse Rate 97 H 76 88 Pulse Rate [Apical] Respiratory Rate 16 Respiratory Effort / Characteristics Non-Labored Spontaneous Respiratory Depth Normal Respiratory Pattern Regular Blood Pressure 137/93 Blood Pressure [Left Arm] Blood Pressure Mean 107 Blood Pressure Mean [Left Arm] Pulse Oximetry 95 94 Oxygen Delivery Method Room Air Room Air Sepsis Recent Fever Within 48 Hours No Sepsis New/Unexplained Change in Mental Status No Sepsis Action Taken by Nursing No Action Required 04/16/23 05:54 04/16/23 05:58 Temperature Temperature Source Pulse Rate Pulse Rate [Apical] 81 Respiratory Rate 20 Respiratory Effort / Characteristics Non-Labored Spontaneous Respiratory Depth Normal Respiratory Pattern Regular Blood Pressure Blood Pressure [Left Arm] 133/96 Blood Pressure Mean Blood Pressure Mean [Left Arm] 108 Pulse Oximetry 95 97 Oxygen Delivery Method Room Air Room Air Sepsis Recent Fever Within 48 Hours Sepsis New/Unexplained Change in Mental Status Sepsis Action Taken by Nursing Laboratory Data 04/16/23 03:30 04/16/23 03:30 Lab Results 04/16/23 04/16/23 04/16/23 Range/Units 03:17 03:17 03:30 WBC 13.57 H (4.8-10.8) K/ul RBC 4.74 (4.70-6.10) M/uL Hgb 14.0 (14.0-18.0) g/dl Hct 41.5 L (42.0-52.0) % MCV 87.6 (80.0-100.0) fL MCH 29.5 (25.0-34.0) pg MCHC 33.7 (32.0-36.0) g/dL RDW Std Deviation 43.2 (36.4-46.3) fL RDW Coeff of Paco 13.4 (11.5-14.5) % Plt Count 163 (130-400) K/uL MPV 11.0 (9.4-12.4) fL Immature Gran % (Auto) 0.4 % Neut % (Auto) 72.7 % Lymph % (Auto) 18.3 % [place] % (Auto) 7.8 % Eos % (Auto) 0.6 % Baso % (Auto) 0.2 % Neut # (Auto) 9.86 H (1.40-6.50) K/uL Lymph # (Auto) 2.48 (1.20-3.40) K/uL [place] # (Auto) 1.06 H (0.11-0.59) K/uL Eos # (Auto) 0.08 (0.00-0.50) K/uL Baso # (Auto) 0.03 (0.00-0.20) K/uL Immature Gran # (Auto) 0.06 (0.01-0.20) K/uL PT INR APTT PTT Ratio Sodium (136-145) mmol/L Potassium (3.5-5.1) mmol/L Chloride (98-107) mmol/L Carbon Dioxide (21-32) mmol/L Anion Gap (3-11) BUN (6-23) mg/dl Creatinine (0.6-1.4) mg/dl Est Cr Clr Drug Dosing ml/min Est GFR ( Amer) ml/min Est GFR (Non-Af Amer) ml/min BUN/Creatinine Ratio (10-20) Glucose (70-99(Fasting)) mg/dl Calcium (8.6-10.3) mg/dl Magnesium (1.7-2.4) mg/dl Total Bilirubin (0.2-1.0) mg/dl AST (13-39) U/L ALT (7-52) U/L Alkaline Phosphatase (34-104) U/L Troponin I High Sens (0-20) pg/ml Total Protein (6.0-8.3) gm/dl Albumin (3.4-5.0) gm/dl Globulin (2.5-4.0) gm/dl Albumin/Globulin Ratio (0.9-2) TSH (0.300-4.500) uIu/ml Urine Color Dark Yellow Urine Appearance Clear (Clear) Urine pH 5.0 (4.5-7.5) Ur Specific Spencer 1.033 H (1.000-1.030) Urine Protein 1+ H (Negative) Urine Glucose (UA) Negative (Negative) Urine Ketones 2+ H (Negative) Urine Blood Negative (Negative) Urine Nitrite Negative (Negative) Urine Bilirubin Negative (Negative) Urine Urobilinogen Negative (Negative) Ur Leukocyte Esterase Negative (Negative) Urine WBC (Auto) 5-10 H (0-5) /hpf Urine RBC (Auto) 0-4 (0-4) /hpf U Hyaline Cast (Auto) 1-5 (0-5) /lpf U Epithel Cells (Auto) 20-30 H (0-5) /lpf Urine Bacteria (Auto) Negative (Negative) Granular Casts 1-5 H (0) /lpf Urine Opiates Screen Neg (Neg) Ur Methadone, Qual Neg (Neg) Urine Barbiturates Neg (Neg) Ur Phencyclidine (PCP) Neg (Neg) U Amphetamin/Meth Scrn Neg (Neg) MDMA (Ecstasy) Screen Neg (Neg) U Benzodiazepines Scrn Neg (Neg) Ur Cocaine Metabolite Neg (Neg) U Marijuana (THC) Screen Neg (Neg) Ethyl Alcohol mg/dL (<10.0) mg/dl 04/16/23 04/16/23 04/16/23 Range/Units 03:30 03:30 03:30 WBC (4.8-10.8) K/ul RBC (4.70-6.10) M/uL Hgb (14.0-18.0) g/dl Hct (42.0-52.0) % MCV (80.0-100.0) fL MCH (25.0-34.0) pg MCHC (32.0-36.0) g/dL RDW Std Deviation (36.4-46.3) fL RDW Coeff of Paco (11.5-14.5) % Plt Count (130-400) K/uL MPV (9.4-12.4) fL Immature Gran % (Auto) % Neut % (Auto) % Lymph % (Auto) % [place] % (Auto) % Eos % (Auto) % Baso % (Auto) % Neut # (Auto) (1.40-6.50) K/uL Lymph # (Auto) (1.20-3.40) K/uL [place] # (Auto) (0.11-0.59) K/uL Eos # (Auto) (0.00-0.50) K/uL Baso # (Auto) (0.00-0.20) K/uL Immature Gran # (Auto) (0.01-0.20) K/uL PT Cancelled INR Cancelled APTT Cancelled PTT Ratio Cancelled Sodium 135 L (136-145) mmol/L Potassium 4.2 (3.5-5.1) mmol/L Chloride 102 (98-107) mmol/L Carbon Dioxide 21 (21-32) mmol/L Anion Gap 12 H (3-11) BUN 17 (6-23) mg/dl Creatinine 1.02 (0.6-1.4) mg/dl Est Cr Clr Drug Dosing 121.7 ml/min Est GFR ( Amer) 114.6 ml/min Est GFR (Non-Af Amer) 98.9 ml/min BUN/Creatinine Ratio 16.7 (10-20) Glucose 107 H (70-99(Fasting)) mg/dl Calcium 9.4 (8.6-10.3) mg/dl Magnesium 2.0 (1.7-2.4) mg/dl Total Bilirubin 1.7 H (0.2-1.0) mg/dl AST 216 H (13-39) U/L ALT 79 H (7-52) U/L Alkaline Phosphatase 51 (34-104) U/L Troponin I High Sens 30.5 H (0-20) pg/ml Total Protein 7.4 (6.0-8.3) gm/dl Albumin 4.6 (3.4-5.0) gm/dl Globulin 2.8 (2.5-4.0) gm/dl Albumin/Globulin Ratio 1.6 (0.9-2) TSH 2.201 (0.300-4.500) uIu/ml Urine Color Urine Appearance (Clear) Urine pH (4.5-7.5) Ur Specific Spencer (1.000-1.030) Urine Protein (Negative) Urine Glucose (UA) (Negative) Urine Ketones (Negative) Urine Blood (Negative) Urine Nitrite (Negative) Urine Bilirubin (Negative) Urine Urobilinogen (Negative) Ur Leukocyte Esterase (Negative) Urine WBC (Auto) (0-5) /hpf Urine RBC (Auto) (0-4) /hpf U Hyaline Cast (Auto) (0-5) /lpf U Epithel Cells (Auto) (0-5) /lpf Urine Bacteria (Auto) (Negative) Granular Casts (0) /lpf Urine Opiates Screen (Neg) Ur Methadone, Qual (Neg) Urine Barbiturates (Neg) Ur Phencyclidine (PCP) (Neg) U Amphetamin/Meth Scrn (Neg) MDMA (Ecstasy) Screen (Neg) U Benzodiazepines Scrn (Neg) Ur Cocaine Metabolite (Neg) U Marijuana (THC) Screen (Neg) Ethyl Alcohol mg/dL < 10.0 (<10.0) mg/dl 04/16/23 04/16/23 Range/Units 04:22 06:05 WBC (4.8-10.8) K/ul RBC (4.70-6.10) M/uL Hgb (14.0-18.0) g/dl Hct (42.0-52.0) % MCV (80.0-100.0) fL MCH (25.0-34.0) pg MCHC (32.0-36.0) g/dL RDW Std Deviation (36.4-46.3) fL RDW Coeff of Paco (11.5-14.5) % Plt Count (130-400) K/uL MPV (9.4-12.4) fL Immature Gran % (Auto) % Neut % (Auto) % Lymph % (Auto) % [place] % (Auto) % Eos % (Auto) % Baso % (Auto) % Neut # (Auto) (1.40-6.50) K/uL Lymph # (Auto) (1.20-3.40) K/uL [place] # (Auto) (0.11-0.59) K/uL Eos # (Auto) (0.00-0.50) K/uL Baso # (Auto) (0.00-0.20) K/uL Immature Gran # (Auto) (0.01-0.20) K/uL PT 12.0 INR 1.1 APTT 29.9 PTT Ratio 1.1 Sodium (136-145) mmol/L Potassium (3.5-5.1) mmol/L Chloride (98-107) mmol/L Carbon Dioxide (21-32) mmol/L Anion Gap (3-11) BUN (6-23) mg/dl Creatinine (0.6-1.4) mg/dl Est Cr Clr Drug Dosing ml/min Est GFR ( Amer) ml/min Est GFR (Non-Af Amer) ml/min BUN/Creatinine Ratio (10-20) Glucose (70-99(Fasting)) mg/dl Calcium (8.6-10.3) mg/dl Magnesium (1.7-2.4) mg/dl Total Bilirubin (0.2-1.0) mg/dl AST (13-39) U/L ALT (7-52) U/L Alkaline Phosphatase (34-104) U/L Troponin I High Sens 34.1 H (0-20) pg/ml Total Protein (6.0-8.3) gm/dl Albumin (3.4-5.0) gm/dl Globulin (2.5-4.0) gm/dl Albumin/Globulin Ratio (0.9-2) TSH (0.300-4.500) uIu/ml Urine Color Urine Appearance (Clear) Urine pH (4.5-7.5) Ur Specific Spencer (1.000-1.030) Urine Protein (Negative) Urine Glucose (UA) (Negative) Urine Ketones (Negative) Urine Blood (Negative) Urine Nitrite (Negative) Urine Bilirubin (Negative) Urine Urobilinogen (Negative) Ur Leukocyte Esterase (Negative) Urine WBC (Auto) (0-5) /hpf Urine RBC (Auto) (0-4) /hpf U Hyaline Cast (Auto) (0-5) /lpf U Epithel Cells (Auto) (0-5) /lpf Urine Bacteria (Auto) (Negative) Granular Casts (0) /lpf Urine Opiates Screen (Neg) Ur Methadone, Qual (Neg) Urine Barbiturates (Neg) Ur Phencyclidine (PCP) (Neg) U Amphetamin/Meth Scrn (Neg) MDMA (Ecstasy) Screen (Neg) U Benzodiazepines Scrn (Neg) Ur Cocaine Metabolite (Neg) U Marijuana (THC) Screen (Neg) Ethyl Alcohol mg/dL (<10.0) mg/dl Administered Medications Discontinued Medications Sodium Chloride (Nss) 1,000 mls @ 999 mls/hr IV .[id number] ONE Stop: 04/16/23 07:33 Last Infusion: 04/16/23 07:34 Dose: 0 mls/hr Documented By: Admin: 04/16/23 06:36 Dose: 999 mls/hr Documented By: MED Imaging Data Radiologist's Impression: Cervical Spine CT 04/16/23 03:05 Exam(s): CT C SPINE EXAM: CT Cervical Spine Without Intravenous Contrast CLINICAL HISTORY: Reason for exam: AMS, head and neck pain. TECHNIQUE: Axial computed tomography images of the cervical spine without intravenous contrast. Automated exposure control was utilized for the study. A dose lowering technique was utilized adhering to the principles of ALARA. COMPARISON: No relevant prior studies available. FINDINGS: Vertebrae: Unremarkable. No acute fracture. Discs/spinal canal/neural foramina: No acute findings. No spinal canal stenosis. Soft tissues: Unremarkable. IMPRESSION: Normal cervical spine CT. Electronically signed by: Newton Randle MD 04/16/23 06:[address] 04/16/23 03:05 Exam(s): CT HEAD Without Contrast EXAM: CT Head Without Intravenous Contrast CLINICAL HISTORY: Reason for exam: AMS. TECHNIQUE: Axial computed tomography images of the head/brain without intravenous contrast. CTDI is 36.31 mGy and DLP is 1152.51 mGy-cm. Automated exposure control was utilized for the study. A dose lowering technique was utilized adhering to the principles of ALARA. COMPARISON: CT head March 18, 2013. FINDINGS: Brain: Unremarkable. No acute intracranial hemorrhage, edema or abnormal mass-effect. Ventricles: Unremarkable. No ventriculomegaly. Bones/joints: Unremarkable. No acute fracture. Soft tissues: Unremarkable. Sinuses: Unremarkable as visualized. No acute sinusitis. Mastoid air cells: Unremarkable as visualized. No mastoid effusion. IMPRESSION: Normal head/brain CT. Electronically signed by: Newton Randle MD 04/16/23 06:29 AM Chest X-Ray 04/16/23 03:06 XR chest 1V not portable HISTORY: 27 years-old Male AMS acutely altered mental status COMPARISON: 10/26/2017 TECHNIQUE: AP view of the chest FINDINGS: Cardiac silhouette is upper limits of normal in size. No pneumothorax, pleural effusion or airspace consolidation. The bones appear grossly intact. Mild mid thoracic dextroscoliosis is likely positional. IMPRESSION: No acute process. ACT 112: Negative or not required by law. The above report was generated using voice recognition software. It may contain grammatical, syntax or spelling errors. Electronically signed by: Imtiaz Conner M.D. 04/16/2023 7:10 AM Discharge Plan Visit Data Chief Complaint: Neck Injury/Pain Stated Complaint: HEAD AND NECK PAIN ED Provider: Lilia Rutledge ED Midlevel Provider: Wendy Knox Discharge Problem: Altered mental status, Bipolar disorder, Elevated troponin level Patient Disposition: Admitted As Inpatient Forms Stand Alone Forms: My [facility] Prescriptions Prescriptions: No Action Vitamin D3 capsule 2,000 units PO DAILY divalproex 500 mg tablet,delayed release (DR/EC) 1,000 mg PO DAILY Caplyta 42 mg capsule 42 mg PO DAILY olanzapine 15 mg tablet 15 mg PO HS Referrals Referrals: Memo Willett DO [Outside Practitioners] -
[2023-04-16 05:40] LABS: INR 1.1 (0.9-1.1); Partial Thromboplastin Ratio 1.1; Partial Thromboplastin Time 29.9 Seconds (21.0-31.0)
--- NOTE | 2023-04-16 06:30 | CT Scan Report ---
Exam(s): CT HEAD Without Contrast EXAM: CT Head Without Intravenous Contrast CLINICAL HISTORY: Reason for exam: AMS. TECHNIQUE: Axial computed tomography images of the head/brain without intravenous contrast. CTDI is 36.31 mGy and DLP is 1152.51 mGy-cm. Automated exposure control was utilized for the study. A dose lowering technique was utilized adhering to the principles of ALARA. COMPARISON: CT head March 18, 2013. FINDINGS: Brain: Unremarkable. No acute intracranial hemorrhage, edema or abnormal mass-effect. Ventricles: Unremarkable. No ventriculomegaly. Bones/joints: Unremarkable. No acute fracture. Soft tissues: Unremarkable. Sinuses: Unremarkable as visualized. No acute sinusitis. Mastoid air cells: Unremarkable as visualized. No mastoid effusion. IMPRESSION: Normal head/brain CT. Electronically signed by: Newton Randle MD 04/16/23 06:29 AM
--- NOTE | 2023-04-16 06:31 | CT Scan Report ---
Exam(s): CT C SPINE EXAM: CT Cervical Spine Without Intravenous Contrast CLINICAL HISTORY: Reason for exam: AMS, head and neck pain. TECHNIQUE: Axial computed tomography images of the cervical spine without intravenous contrast. Automated exposure control was utilized for the study. A dose lowering technique was utilized adhering to the principles of ALARA. COMPARISON: No relevant prior studies available. FINDINGS: Vertebrae: Unremarkable. No acute fracture. Discs/spinal canal/neural foramina: No acute findings. No spinal canal stenosis. Soft tissues: Unremarkable. IMPRESSION: Normal cervical spine CT. Electronically signed by: Newton Randle MD 04/16/23 06:30 AM
[2023-04-16] MEDS ORDERED: SODIUM CHLORIDE 0.9% 1,000 ML IV ONE (06:33)
--- NOTE | 2023-04-16 07:11 | XRay Report ---
XR chest 1V not portable HISTORY: 27 years-old Male AMS acutely altered mental status COMPARISON: 10/26/2017 TECHNIQUE: AP view of the chest FINDINGS: Cardiac silhouette is upper limits of normal in size. No pneumothorax, pleural effusion or airspace c onsolidation. The bones appear grossly intact. Mild mid thoracic dextroscoliosis is likely positional . IMPRESSION: No acute process. ACT 112: Negative or not required by law. The above report was generated using voice recognition software. It may contain grammatical, syntax o r spelling errors. Electronically signed by: Imtiaz Conner M.D. 04/16/2023 7:10 AM
--- NOTE | 2023-04-16 07:49 | Electrocardiogram Report ---
Test Reason : Blood Pressure : / mmHG Vent. Rate : 075 BPM Atrial Rate : 075 BPM P-R Int : 142 ms QRS Dur : 092 ms QT Int : 386 ms P-R-T Axes : 020 044 006 degrees QTc Int : 431 ms Normal sinus rhythm with sinus arrhythmia Normal ECG When compared with ECG of 06-DEC-2017 15:07, T wave inversion now evident in Inferior leads Confirmed by Jeff Romero ([id number]) on 04/16/2023 7:49:23 AM Referred By: Confirmed By:Herbert Romero
--- NOTE | 2023-04-16 08:16 | History & Physical Report ---
Date of Service April 16, 2023 Assessment & Plan (1) Altered mental status: Plan: 27 year old male with history of bipolar disorder presenting at the ER after being brought by the Police, found wandering in [facility], with altered mental status. He follows with [facility] PCP and [facility] Psych. ALTERED MENTAL STATUS HISTORY OF BIPOLAR DISORDER stopped taking Psych medications 4 days ago His medication list includes Bupropion, Caplyta and Depakote per outpatient [facility] records. CT head negative UDS negative slight fever, leukocystosis on admission no symptoms of infection CXR: negative UA: no UTI check blood culture and urine culture Psychiatry service consulted hold Psych meds for now HEAD, NECK PAIN reported initially at the ER on admission CT head: unremarkable CT cervical spine: unremarkable doubt meningitis at this point likely musculoskeletal pain PRN Tylenol MILD TROPONIN ELEVATION no cardiac symptoms non smoker does not know medical history of biological parents, he is adopted 30--> 34 EKG: non specific T wave depression lead II repeat Trop at 12pm, 6pm check CPK check Echo repeat EKG daily MILD BILIRUBIN, AST>ALT ELEVATION Alcohol level negative denies abdominal pain check Liver US DVT prophylaxis SCDs Full Code Disposition lives alone, family nearby pending Psych evaluation patient's mother Michelle updated History of Present Illness Chief Complaint: altered mental status Primary Care Provider: Nancy Parkinson MD 27 year old male with history of bipolar disorder presenting at the ER after being brought by the Police, found wandering in [facility], with altered mental status. He follows with [facility] PCP and [facility] Psych. He followed up with his PCP last March 28, 2023 for fatigue. His medication list includes Bupropion, Caplyta and Depakote per outpatient [facility] records. He was found by the Police walking around [facility] [employer], seems confused and reporting head and neck pain. At the ER, patient not clear on why he was brought to the hospital and still confused. He denied any chest pain, shortness of breath, numbness, tingling, weakness, nausea/vomiting, headache, dizziness, or other concerning symptoms. Apparently, patient has been missing for the past 2 days. On my exam, patient seen resting in bed, watching TV, calm, cooperative. Oriented x 2, but gets confused and has poor recollection on many things. He can tell me his home address and his parents' names. He states that he left his car at [employer] [place] and his other car at [facility] to request for new car keys as he lost them at [employer] the other day. He adds that he has just been walking around [place] the whole day yesterday, because "he does not know what to do". Patient stopped taking his psych meds 4 days ago as they are making his head "numb". Denies depression, anxiety, suicidal ideation. Patient denies headache, neck pain or any other pain. Denies other symptoms. He gave me permission to call his parents to let them know he is in the hospital for psych evaluation as well as cardiac and liver testing. Allergies Allergy/AdvReac Type Severity Reaction Status Date / Time oxycodone Allergy Unknown ITCHING Verified 03/27/19 18:24 ALL OVER Home Medications Medication Instructions Recorded Confirmed Type Vitamin D3 2,000 units PO DAILY 03/27/19 12/17/22 History divalproex 500 mg tablet,delayed 1,000 mg PO DAILY 12/17/22 12/17/22 History release lumateperone 42 mg capsule 42 mg PO DAILY 12/17/22 12/17/22 History (Caplyta) olanzapine 15 mg tablet 15 mg PO HS 12/17/22 12/17/22 History Past Med/Surg History Medical History Bipolar disorder (03/18/13) Depression Social History Smoking Status: Never smoker Tobacco Type: Cigarettes Preferred Language: Spanish Feels Safe at Home: No Gender Identity: Male Review of Systems Review of Systems: all noted and negative except for above Physical Exam Physical Exam: General- oriented x 3, not in distress, speaks in sentences with no effort or accessory muscle use Head- atraumatic Eyes- PERRL, EOMI, anicteric ENT- oropharynx clear Neck- supple, no JVD, no adenopathy, no thyromegaly; carotids +2/2, no bruits appreciated Lungs- clear to auscultation bilaterally, no rales/wheezes Heart- normal rate, regular rhythm; no murmur, no gallop, no rub appreciated Abdomen- normal bowel sounds, nondistended, soft, nontender, no masses or hepatosplenomegaly Extremities- no pretibial edema, no calf tenderness; peripheral pulses intact Neuro- alert, oriented x 3; CN 2-12 grossly intact; motor 5/5 bilaterally;sensation 100% on all extremities; no other gross focal neurologic deficits Skin- warm & dry Results & Data Results & Data Vital Signs (Past 12 Hours) Vital Signs Temp Pulse Pulse Resp BP BP Pulse Ox 04/16/23 05:58 97 04/16/23 05:54 81 20 133/96 95 04/16/23 05:19 88 94 04/16/23 03:39 76 04/16/23 03:00 37.6 C H 97 H 16 137/93 95 O2 Del Method 04/16/23 05:58 Room Air 04/16/23 05:54 Room Air 04/16/23 05:19 Room Air 04/16/23 03:39 04/16/23 03:00 Room Air all noted and reviewed including below Code Status & VTE Plan VTE Prophylaxis Plan VTE Prophylaxis will be ordered: Yes
--- NOTE | 2023-04-16 10:58 | Ultrasound Report ---
ABDOMINAL ULTRASOUND, RIGHT UPPER QUADRANT HISTORY: Acutely elevated LFTs elevated bilirubin, ast/alt. COMPARISON: CT 11/27/2014 FINDINGS: Pancreas: The pancreas is mostly obscured by bowel gas. Liver: 17.4 cm in length. Gallbladder: No gallbladder wall thickening. No gallstones. CBD: 0.4 cm Right kidney: No hydronephrosis. IMPRESSION: No significant abnormality identified within the right upper quadrant. ACT 112: Negative or not required by law. Electronically signed by: Imtiaz Conner M.D. 04/16/2023 10:57 AM
[2023-04-16] MEDS ORDERED: ACETAMINOPHEN 325 MG TAB PO PRN (11:51)
[2023-04-16] MEDS: SODIUM CHLORIDE 0.9% 1,000 ML IV SCH ×2 (12:41→21:22)
--- NOTE | 2023-04-16 13:52 | Psychiatric Consultation ---
Date of Consultation April 16, 2023 Impression / Recommendations Impression Diagnostically seems consistent with episode of acute susan with psychosis in setting of known history of BPAD type I with similar presentations over the last 5+ years for confusion, wandering and disorganized behaviors during episodes of susan with psychosis. Given his reluctance to consider most psychiatric medications recommend trial of seroquel tonight, which he at least does not state opposition to, in effort to get him some sleep which should help with some of his symptoms. Agree with medical workup to ensure no other contributing causes for AMS but suspect presentation is likely due to acute susan with psychosis in which case psychiatric hospitalization will be needed once medically stable. If he asks to leave would recommend psych liason pursue a 302 warrant given current evidence for acute susan with psychosis and recent concerning behaviors of wandering downtown and need for medical workup. Overall, I spent a total of 65 minutes with this case including review of chart records, review of labwork, review of QTc on EKG, direct evaluation of the patient at bedside, counseling the patient, discussion of the patient with the Nurse and with the hospitalist provider, discussion with the psychiatric liason during clinical rounds and documentation in the electronic health record. (1) Altered mental status: (2) Bipolar affective disorder, manic, severe, with psychotic behavior: Plan -Cannot leave AMA, if he attempts to do so please call security and psych liason as he is likely to meet criteria for 302 warrant -Recommend Seroquel 600mg po HS if cardiac status remains stable -Recommend ativan 1mg po TID prn for susan/agitation -Recommend Valproic acid level if he allows another blood draw -For acute behavioral emergency: Haloperidol 5 mg IM and Lorazepam 2 mg IM. Monitor QTc as able, especially if multiple doses are required. Psych History Identifying Data 27 yo man with history of BPAD type I admitted medically for altered mental status with head/neck pain and found to have non specific EKG changes. Psychiatry consulted for recommendations given history of BPAD type I. Chief Complaint "I stopped them". History of Present Illness Simone was brought to the ED by police after being found wandering in [facility] for unknown period of time. The history he provided to ED and hospitalist providers is quite vague and notable for some oddities including losing his keys as a reason for his wandering downtown for multiple days. During my attempts at asking for recent history he is largely silent, appears to be responding to internal stimuli with odd affect and intense eye contact. However, does tell me that he stopped taking his psychiatric medication "about a week ago" for both side effects and feeling that he didn't need them anymore. Confirms he's seen by Dr. Green for psychiatry through [facility], refuses to sign MAURY for records. Denies any history of allergic reactions to psychiatric medications. Reports last inpatient stay was in October 2022 and December 2022 both at [facility]. States he will not take olanzapine or thorazine to help with sleep but agrees he hasn't been sleeping well. He denies any recent substance use. Doesn't respond when asked if he may be experiencing any episode of susan. Cannot tell me why he's at the hospital or what he's being treated for or why he has refused certain interventions. Apparently has most recently been taking: Wellbutrin, Caplyta, Depakote. History of prior medication trials of olanzapine (up to 15mg HS), thorazine, Invega S ustenna, Latuda, [place], Haldol, ativan, topimax. Allergies Allergy/AdvReac Type Severity Reaction Status Date / Time oxycodone Allergy Unknown ITCHING Verified 04/16/23 11:09 ALL OVER Home Medications Medication Instructions Recorded Confirmed Type Vitamin D3 2,000 units PO DAILY 03/27/19 04/16/23 History divalproex 500 mg tablet,delayed 1,000 mg PO HS 12/17/22 04/16/23 History release lumateperone 42 mg capsule 42 mg PO DAILY 12/17/22 04/16/23 History (Caplyta) bupropion HCl 150 mg 24 hr tablet, 150 mg PO QAM 04/16/23 04/16/23 History extended release Patient History Medical History Bipolar disorder (03/18/13) Depression Social History Smoking Status: Never smoker Tobacco Type: Cigarettes Preferred Language: Maori Feels Safe at Home: No Gender Identity: Male Physical Exam Psychiatric: Orientation: alert, oriented to person, oriented to place and + guarded; + not oriented to time Apperance: + disheveled; + inappropriately dressed (not wearing a shirt) Eye Contact: good eye contact (intense) Motor Behavior: no abnormal motor movements (but touching various things in his room) Speech: + abnormal rate/rhythm/volume of speech (brief, latency) Affect: + labile affect (odd smiles at times incongruent to questions) Mood: + irritable mood Thought Process: + thought blocking (severe) and + looseness of associations Thought Content: reality based without delusions (but difficult to assess given sparsity of expressed thoughts) Suicidal Thoughts: denies suicidal thoughts Homicidal Thoughts: denies homicidal thoughts Hallucinations: + auditory hallucinations (seems to be very likely responding to internal stimuli) Cognition: language grossly intact; + recent memory not intact and + attention not intact Insight: + severely impaired insight Judgment: + severely impaired judgement Vital Signs (Past 24 Hours): Last Vital Signs Temp 37.6 C H 04/16/23 03:00 Pulse 77 04/16/23 08:21 Resp 20 04/16/23 05:54 BP 133/96 04/16/23 05:54 Pulse Ox 97 04/16/23 05:58 O2 Del Method Room Air 04/16/23 05:58 Review of Systems All systems reviewed & are unremarkable except as noted in HPI & below Results & Data (PSY) Medications Administered Sodium Chloride (Nss) 1,000 mls @ 100 mls/hr IV .Q10H BRYCE Stop: 05/16/23 11:50 Last Admin: 04/16/23 12:41 Dose: Not Given Documented By: GAYE Coding Level of Care Code 46729 IN/OBS CONSULT LVL 4,60M Diagnoses Altered mental status R41.82 Bipolar affective disorder, manic, severe, with psychotic behavior F31.2
[2023-04-16] MEDS ORDERED: LORazepam 1 MG TAB PO PRN (14:00)
[2023-04-16] MEDS: HALOPERIDOL LACTATE 5 MG/ML 1 ML VIAL IM PRN (15:45)
[2023-04-16] MEDS ORDERED: LORazepam 2 MG/1 ML VIAL IM PRN (16:00)
[2023-04-16] MEDS: QUEtiapine FUMARATE 300 MG TABLET PO SCH (21:22)
[2023-04-17] MEDS: SODIUM CHLORIDE 0.9% 1,000 ML IV SCH ×3 (05:34→22:22)
[2023-04-17 07:45] LABS: Basophils # (auto) 0.03 K/uL (0.00-0.20); Basophils % (auto) 0.5 %; Eosinophils # (auto) 0.43 K/uL (0.00-0.50); Eosinophils % (auto) 6.6 %; Hematocrit (blood only) 38.4 % (42.0-52.0); Hemoglobin 12.9 g/dl (14.0-18.0); Immature Granulocytes # (auto) 0.01 K/uL (0.01-0.20); Immature Granulocytes % (auto) 0.2 %; Lymphocytes # (auto) 2.69 K/uL (1.20-3.40); Lymphocytes % (auto) 41.4 %; Mean Corpuscular Hemoglobin 29.3 pg (25.0-34.0); Mean Corpuscular Hgb Conc 33.6 g/dL (32.0-36.0); Mean Corpuscular Volume 87.1 fL (80.0-100.0); Mean Platelet Volume 9.8 fL (9.4-12.4); Monocytes # (auto) 0.48 K/uL (0.11-0.59); Monocytes % (auto) 7.4 %; Neutrophils # (auto) 2.85 K/uL (1.40-6.50); Neutrophils % (auto) 43.9 %; Platelet Count 166 K/uL (130-400); RDW Coefficient of Variation 13.5 % (11.5-14.5); RDW Standard Deviation 43.4 fL (36.4-46.3); Red Blood Count 4.41 M/uL (4.70-6.10); White Blood Count 6.49 K/ul (4.8-10.8)
--- NOTE | 2023-04-17 07:45 | Hospitalist Progress Note ---
Date of Service April 17, 2023 Assessment & Plan (1) Altered mental status: Plan: 27 year old male with history of bipolar disorder presenting to the ER after being brought by the Police, found wandering in [facility], with altered mental status. He follows with a [facility] PCP and [facility] Psych. ALTERED MENTAL STATUS HISTORY OF BIPOLAR DISORDER stopped taking home Psych medications 4 days prior to arrival His medication list includes Bupropion, Caplyta and Depakote per outpatient [facility] records. CT head negative UDS negative slight fever, leukocytosis on admission no symptoms of infection CXR: negative UA: no UTI blood culture and urine culture-pending Psychiatry service consulted-appreciate recs -Patient felt to have acute psychosis -Recommend: -Seroquel 600 mg at bedtime scheduled -As needed Ativan 1 mg 3 times daily for susan/agitation -For severe agitation, Haldol 5mg IM and Lorazepam 2 mg IM. Monitor QTc as able, especially if multiple doses are required. -Patient cannot leave AMA. If patient attempts to leave, security and psych liaison should be called for 302 -Once medically clear, patient needs inpatient psych treatment Anticipate medical clearance tomorrow once CPK in normal limits (see below) and fluids discontinued. Can be discharged to psych service at that time. ACUTE RHABDO CPK elevated at 5245, downtrended to 1472 Continue IV fluids at this time Trend with AM labs HEAD, NECK PAIN reported initially at the ER on admission CT head: unremarkable CT cervical spine: unremarkable doubt meningitis at this point likely musculoskeletal pain PRN pain meds MILD TROPONIN ELEVATION hs-trop peaked at 34. 1, downtrended and currently wnl no cardiac symptoms EKG: non specific T wave depression lead II Echo unremarkable Transaminitis Liver enzymes were elevated, currently downtrending Alcohol level negative denies abdominal pain Unremarkable Liver US Continue to trend with AM CMP DVT prophylaxis: SCDs CODE STATUS: Full Code Disposition: Per psych: "Cannot leave AMA, if he attempts to do so please call security and psych liason as he is likely to meet criteria for 302 warrant". Anticipate medical clearance tomorrow once CPK in normal limits and fluids discontinued. Admission and Anticipated Discharge Date Admission Date: April 16, 2023 Subjective Pt seen in the AM, sitter at bedside. States that he felt confused, sleepy, dizzy. Per nursing, was requesting to take a shower. Review of Systems Review of Systems: All systems reviewed & are unremarkable except as noted in Subjective Physical Exam Physical Exam: General: Alert, orientedx3. No acute distress Skin: No noted rashes or bruises Psych: Appropriate mood and affect Neuro: No gross deficits HEENT: NC/AT CV: RRR Resp: Breath sounds clear bilaterally, no increased effort of breathing. Abdomen: Soft, nontender, nondistended. Extremities: No edema in lower extremities bilaterally. Results & Data Results & Data Vital Signs (Past 12 Hours) Vital Signs Temp Pulse Pulse Resp BP Pulse Ox O2 Del Method 04/17/23 07:05 Room Air 04/17/23 05:59 81 04/17/23 03:07 36.5 C 76 18 111/75 94 Room Air 04/16/23 22:56 124 H 04/16/23 22:07 85 04/16/23 22:03 36.4 C L 84 16 123/75 96 Room Air 04/16/23 20:15 36.5 C 77 18 138/95 99 Room Air 04/16/23 19:59 82 16 127/70 98 Room Air
[2023-04-17 08:00] LABS: Albumin Level 3.6 gm/dl (3.4-5.0); BUN Creatinine Ratio 10.7 (10-20); Bilirubin Direct 0.2 mg/dl (0-0.2); Bilirubin,Total 0.8 mg/dl (0.2-1.0); Calcium 8.5 mg/dl (8.6-10.3); Creatinine Clr Calc Pharmacy 147.9 ml/min; Est GFR (African American) 137.1 ml/min; Est GFR (Non-African American) 118.3 ml/min; Potassium 3.7 mmol/L (3.5-5.1)
[2023-04-17 08:10] LABS: Troponin I High Sensitivity 10.4 pg/ml (0-20)
--- NOTE | 2023-04-17 12:19 | Psychiatric Progress Note ---
Date of Service April 17, 2023 Impression / Recommendations Impression Diagnostically seems consistent with episode of acute susan with psychosis in setting of known history of BPAD type I with similar presentations over the last 5+ years for confusion, wandering and disorganized behaviors during episodes of susan with psychosis. Given his reluctance to consider most psychiatric medications recommend trial of seroquel tonight, which he at least does not state opposition to, in effort to get him some sleep which should help with some of his symptoms. Agree with medical workup to ensure no other contributing causes for AMS but suspect presentation is likely due to acute susan with psychosis in which case psychiatric hospitalization will be needed once medically stable. 04/17/2023: Slightly more organized with less thought blocking after getting Seroquel and sleeping some last night but still unable to speak to recent events or how he will attend to self-care needs and significant concern for medical decompensation without treatment given elevated CPK. Valproic acid level pending. Elevated CPK likely from him wandering for multiple days due to suspected susan, remains with very poor insight and judgment. The patient remains hospitalized on a completed 302 involuntary commitment, which if not extended, will on 04/22/2023 at 11:03am. This patient must remain on safety precautions with a 1-on-1 and is unable to leave the hospital AMA. Overall, I spent a total of 45 minutes with this case including review of chart records, review of labwork, direct evaluation of the patient at bedside, counseling the patient, discussion with the psychiatric liason during clinical rounds and documentation in the electronic health record. (1) Altered mental status: (2) Bipolar affective disorder, manic, severe, with psychotic behavior: Plan -He is on a 302 commitment, cannot leave AMA if he attempts to do so please call security, needs to remain on 1-on-1 given high elopement risk due to behavioral disorganization and 302 commitment -Recommend continuing Seroquel 600mg po HS if cardiac status remains stable -Recommend ativan 1mg po TID prn for susan/agitation -Valproic acid level is pending -He agreed to sign MAURY for his mother, psych liason to get further collateral/recent history -For acute behavioral emergency: Haloperidol 5 mg IM and Lorazepam 2 mg IM. Monitor QTc as able, especially if multiple doses are required. Interval History Identifying Information 27 yo man with history of BPAD type I admitted medically for altered mental status with head/neck pain and found to have non specific EKG changes. Psychiatry consulted for recommendations given history of BPAD type I. Chief Complaint "I don't know". Subjective Subjective Patient was seen & assessed and interval progress reviewed. Required IM haldol last evening and 302 warrant due to attempt to leave. Did accept po seroquel and slept a few hours overnight. Today repeatedly touching IV line but allowing fluids and AM blood draw. Remains confused, with choices can say he is at the hospital but doesn't know why he is here. Slightly more insight stating it's "possible" he could be experiencing some susan. Thinks month is Nov but oriented to year, has odd way of describing where he lives. Agrees to sign MAURY for his mother. Unable to describe recent events or what he was doing prior to hospitalization. Denies any side effects from seroquel last night except that he feels a little tired today. Physical Exam Psychiatric Orientation: alert, oriented to person, oriented to place and + guarded; + not oriented to time Apperance: appropriately dressed and + disheveled Eye Contact: good eye contact Motor Behavior: no abnormal motor movements (but touching his IV line repeatedly) Speech: + abnormal rate/rhythm/volume of speech (brief, less latent today) Affect: + constricted affect Mood: + irritable mood Thought Process: + thought blocking (less evident today), + circumstantial thought process and + looseness of associations Thought Content: reality based without delusions (but difficult to assess given sparsity of expressed thoughts) Suicidal Thoughts: denies suicidal thoughts Homicidal Thoughts: denies homicidal thoughts Hallucinations: + auditory hallucinations (unclear if responding) Cognition: language grossly intact; + recent memory not intact and + attention not intact Insight: + severely impaired insight Judgment: + severely impaired judgement Vital Signs (Past 24 Hours) Last Vital Signs Temp 36.4 C L 04/17/23 11:25 Pulse 85 04/17/23 11:25 Resp 18 04/17/23 11:25 BP 118/77 04/17/23 11:25 Pulse Ox 97 04/17/23 11:25 O2 Del Method Room Air 04/17/23 11:25 Results & Data (U) Laboratory Results Laboratory Results - last 24 hr 04/16/23 04/16/23 04/16/23 06:05 12:41 16:29 WBC RBC Hgb Hct MCV MCH MCHC RDW Std Deviation RDW Coeff of Paco Plt Count MPV Immature Gran % (Auto) Neut % (Auto) Lymph % (Auto) [place] % (Auto) Eos % (Auto) Baso % (Auto) Neut # (Auto) Lymph # (Auto) [place] # (Auto) Eos # (Auto) Baso # (Auto) Immature Gran # (Auto) Sodium Potassium Chloride Carbon Dioxide Anion Gap BUN Creatinine Est Cr Clr Drug Dosing Est GFR ( Amer) Est GFR (Non-Af Amer) BUN/Creatinine Ratio Glucose Calcium Total Bilirubin Direct Bilirubin AST ALT Alkaline Phosphatase Total Creatine Kinase 5245 H Troponin I High Sens 17.3 D Total Protein Albumin Free Valproic Acid Pending Total Valproic Acid Pending 04/17/23 04/17/23 06:32 06:32 WBC 6.49 RBC 4.41 L Hgb 12.9 L Hct 38.4 L MCV 87.1 MCH 29.3 MCHC 33.6 RDW Std Deviation 43.4 RDW Coeff of Paco 13.5 Plt Count 166 MPV 9.8 Immature Gran % (Auto) 0.2 Neut % (Auto) 43.9 Lymph % (Auto) 41.4 [place] % (Auto) 7.4 Eos % (Auto) 6.6 Baso % (Auto) 0.5 Neut # (Auto) 2.85 Lymph # (Auto) 2.69 [place] # (Auto) 0.48 Eos # (Auto) 0.43 Baso # (Auto) 0.03 Immature Gran # (Auto) 0.01 Sodium 140 Potassium 3.7 Chloride 108 H Carbon Dioxide 27 Anion Gap 5 BUN 9 Creatinine 0.84 Est Cr Clr Drug Dosing 147.9 Est GFR ( Amer) 137.1 Est GFR (Non-Af Amer) 118.3 BUN/Creatinine Ratio 10.7 Glucose 95 Calcium 8.5 L Total Bilirubin 0.8 D Direct Bilirubin 0.2 AST 91 H ALT 52 Alkaline Phosphatase 34 Total Creatine Kinase 1472 H Troponin I High Sens 10.4 D Total Protein 6.0 Albumin 3.6 Free Valproic Acid Total Valproic Acid Current Inpatient Medications Current Inpatient Medications: Current Inpatient Medications Acetaminophen (Acetaminophen 325 Mg Tab) 650 mg PO Q8H PRN PRN Reason: Pain or Fever Stop: 05/16/23 11:50 Haloperidol Lactate (Haloperidol Lactate 5 Mg/Ml 1 Ml Vial) 5 mg IM ONE PRN PRN Reason: agitation Stop: 05/16/23 13:59 Last Admin: 04/16/23 15:45 Dose: 5 mg Sodium Chloride (Nss) 1,000 mls @ 125 mls/hr IV .Q8H BRYCE Stop: 05/16/23 11:50 Last Admin: 04/17/23 05:34 Dose: 125 mls/hr Lorazepam (Lorazepam 1 Mg Tab) 1 mg PO TID PRN PRN Reason: susan/agitation Stop: 05/16/23 13:59 Lorazepam (Lorazepam 2 Mg/1 Ml Vial) 2 mg IM ONE PRN PRN Reason: severe agitation Stop: 05/16/23 15:59 Quetiapine Fumarate (Quetiapine Fumarate 300 Mg Tablet) 600 mg PO HS BRYCE Stop: 05/16/23 20:59 Last Admin: 04/16/23 21:22 Dose: 600 mg
--- NOTE | 2023-04-17 12:44 | Electrocardiogram Report ---
Test Reason : Blood Pressure : / mmHG Vent. Rate : 081 BPM Atrial Rate : 081 BPM P-R Int : 148 ms QRS Dur : 096 ms QT Int : 420 ms P-R-T Axes : 043 063 020 degrees QTc Int : 487 ms Normal sinus rhythm Nonspecific ST and T wave abnormality Prolonged QT Abnormal ECG When compared with ECG of 16-APR-2023 18:13, (unconfirmed) Premature supraventricular complexes are no longer Present Sinus rhythm is no longer with ventricular escape complexes Confirmed by Jeff Romero ([id number]) on 04/17/2023 12:44:08 PM Referred By: REFERRED SELF Confirmed By:Herbert Romero
--- NOTE | 2023-04-17 12:46 | Electrocardiogram Report ---
Test Reason : Blood Pressure : / mmHG Vent. Rate : 062 BPM Atrial Rate : 072 BPM P-R Int : 142 ms QRS Dur : 096 ms QT Int : 464 ms P-R-T Axes : 041 066 022 degrees QTc Int : 470 ms Sinus rhythm with Premature supraventricular complexes with ventricular escape complexes (fusion beat s) Otherwise normal ECG When compared with ECG of 16-APR-2023 03:21, Premature supraventricular complexes are now Present Sinus rhythm is now with ventricular escape complexes Confirmed by Jeff Romero ([id number]) on 04/17/2023 12:46:36 PM Referred By: REFERRED SELF Confirmed By:Herbert Romero
[2023-04-17] MEDS: QUEtiapine FUMARATE 300 MG TABLET PO SCH (21:45)
[2023-04-17] MEDS ORDERED: Nursing to Pharmacy Communication SCH (22:30)
[2023-04-18] MEDS: SODIUM CHLORIDE 0.9% 1,000 ML IV SCH ×3 (06:30→22:41)
[2023-04-18 07:20] LABS: Basophils # (auto) 0.03 K/uL (0.00-0.20); Basophils % (auto) 0.6 %; Eosinophils # (auto) 0.28 K/uL (0.00-0.50); Eosinophils % (auto) 5.8 %; Hematocrit (blood only) 38.3 % (42.0-52.0); Hemoglobin 12.8 g/dl (14.0-18.0); Lymphocytes # (auto) 2.41 K/uL (1.20-3.40); Lymphocytes % (auto) 49.8 %; Mean Corpuscular Hemoglobin 29.4 pg (25.0-34.0); Mean Corpuscular Hgb Conc 33.4 g/dL (32.0-36.0); Mean Corpuscular Volume 87.8 fL (80.0-100.0); Mean Platelet Volume 9.1 fL (9.4-12.4); Monocytes # (auto) 0.27 K/uL (0.11-0.59); Monocytes % (auto) 5.6 %; Neutrophils # (auto) 1.85 K/uL (1.40-6.50); Neutrophils % (auto) 38.2 %; Platelet Count 168 K/uL (130-400); RDW Coefficient of Variation 13.4 % (11.5-14.5); RDW Standard Deviation 43.5 fL (36.4-46.3); Red Blood Count 4.36 M/uL (4.70-6.10); White Blood Count 4.84 K/ul (4.8-10.8)
[2023-04-18 07:48] LABS: Albumin Globulin Ratio 1.4 (0.9-2); Albumin Level 3.8 gm/dl (3.4-5.0); BUN Creatinine Ratio 9.5 (10-20); Bilirubin,Total 0.6 mg/dl (0.2-1.0); Calcium 8.9 mg/dl (8.6-10.3); Creatinine Clr Calc Pharmacy 149.1 ml/min; Est GFR (African American) 137.1 ml/min; Est GFR (Non-African American) 118.3 ml/min; Globulin 2.7 gm/dl (2.5-4.0); Magnesium 1.8 mg/dl (1.7-2.4); Phosphorus 4.1 mg/dl (2.5-4.9); Total Protein 6.5 gm/dl (6.0-8.3)
--- NOTE | 2023-04-18 12:41 | Psychiatric Progress Note ---
Date of Service April 18, 2023 Impression / Recommendations Impression Diagnostically seems consistent with episode of acute susan with psychosis in setting of known history of BPAD type I with similar presentations over the last 5+ years for confusion, wandering and disorganized behaviors during episodes of susan with psychosis. Given his reluctance to consider most psychiatric medications recommend trial of seroquel tonight, which he at least does not state opposition to, in effort to get him some sleep which should help with some of his symptoms. Agree with medical workup to ensure no other contributing causes for AMS but suspect presentation is likely due to acute susan with psychosis in which case psychiatric hospitalization will be needed once medically stable. 04/18/2023: Less evidence for psychomotor activation today but still with confusion and poor sleep consistent with acute susan with psychosis. Tolerating Seroquel well, he consents and would like to increase the dose tonight to help him sleep more. Reviewed side effects including but not limited to increased sedation. Valproic acid level still pending, given his contradictory reports regarding recent medication use and possible side effects will hold off on restarting Depakote until this level comes back. The patient remains hospitalized on a completed 302 involuntary commitment, which if not extended, will on 04/22/2023 at 11:03am. This patient must remain on safety precautions with a 1-on-1 and is unable to leave the hospital AMA. Overall, I spent a total of 45 minutes with this case including review of chart records, review of labwork, direct evaluation of the patient at bedside, counseling the patient, discussion with the psychiatric liason during clinical rounds and documentation in the electronic health record. (1) Altered mental status: (2) Bipolar affective disorder, manic, severe, with psychotic behavior: Plan -He is on a 302 commitment, cannot leave AMA if he attempts to do so please call security, needs to remain on 1-on-1 given high elopement risk due to behavioral disorganization and 302 commitment -Increase Seroquel to 800mg po HS -Recommend ativan 1mg po TID prn for susan/agitation -Valproic acid level is pending -He agreed to sign MAURY for his mother, psych liason to get further collateral/recent history -For acute behavioral emergency: Haloperidol 5 mg IM and Lorazepam 2 mg IM. Monitor QTc as able, especially if multiple doses are required. Interval History Identifying Information 27 yo man with history of BPAD type I admitted medically for altered mental status with head/neck pain and found to have non specific EKG changes. Psychiatry consulted for recommendations given history of BPAD type I. Chief Complaint "I'm ok, still confused about some stuff". Subjective Subjective Patient was seen & assessed and interval progress reviewed. Slept only a few hours overnight. He is agreeable to increasing Seroquel dose to 800mg tonight to see if this helps him sleep longer. Fully oriented today but reports still having some confusion "about how I got here and where I'm going and what it all means". Still confused about why he is getting IV fluids and medically admitted. Denies any side effects to the Seroquel. Physical Exam Psychiatric Orientation: alert, oriented to person, oriented to place, oriented to time and + guarded Apperance: appropriately dressed and + disheveled Eye Contact: good eye contact Motor Behavior: no abnormal motor movements Speech: + abnormal rate/rhythm/volume of speech (brief, less latent today) Affect: + constricted affect Thought Process: + thought blocking (less evident today), + circumstantial thought process and + looseness of associations Thought Content: reality based without delusions (but difficult to assess given sparsity of expressed thoughts) Suicidal Thoughts: denies suicidal thoughts Homicidal Thoughts: denies homicidal thoughts Hallucinations: + auditory hallucinations (unclear if responding) Cognition: language grossly intact; + recent memory not intact and + attention not intact Insight: + severely impaired insight Judgment: + severely impaired judgement Vital Signs (Past 24 Hours) Last Vital Signs Temp 36.5 C 04/18/23 12:30 Pulse 63 04/18/23 12:30 Resp 17 04/18/23 12:30 BP 120/82 04/18/23 12:30 Pulse Ox 97 04/18/23 12:30 O2 Del Method Room Air 04/18/23 12:30 Results & Data ([facility]) Laboratory Results Laboratory Results - last 24 hr 04/18/23 04/18/23 04/18/23 07:03 07:03 07:03 WBC 4.84 RBC 4.36 L Hgb 12.8 L Hct 38.3 L MCV 87.8 MCH 29.4 MCHC 33.4 RDW Std Deviation 43.5 RDW Coeff of Paco 13.4 Plt Count 168 MPV 9.1 L Immature Gran % (Auto) 0.0 Neut % (Auto) 38.2 Lymph % (Auto) 49.8 [place] % (Auto) 5.6 Eos % (Auto) 5.8 Baso % (Auto) 0.6 Neut # (Auto) 1.85 Lymph # (Auto) 2.41 [place] # (Auto) 0.27 Eos # (Auto) 0.28 Baso # (Auto) 0.03 Immature Gran # (Auto) 0.00 L Sodium 140 Potassium 4.0 Chloride 109 H Carbon Dioxide 26 Anion Gap 5 BUN 8 Creatinine 0.84 Est Cr Clr Drug Dosing 149.1 Est GFR ( Amer) 137.1 Est GFR (Non-Af Amer) 118.3 BUN/Creatinine Ratio 9.5 L Glucose 96 Calcium 8.9 Ionized Calcium 1.17 Phosphorus 4.1 Magnesium 1.8 Total Bilirubin 0.6 AST 74 H ALT 53 H Alkaline Phosphatase 35 Total Creatine Kinase 1049 H Total Protein 6.5 Albumin 3.8 Globulin 2.7 Albumin/Globulin Ratio 1.4 PTH Intact 04/18/23 07:03 WBC RBC Hgb Hct MCV MCH MCHC RDW Std Deviation RDW Coeff of Paco Plt Count MPV Immature Gran % (Auto) Neut % (Auto) Lymph % (Auto) [place] % (Auto) Eos % (Auto) Baso % (Auto) Neut # (Auto) Lymph # (Auto) [place] # (Auto) Eos # (Auto) Baso # (Auto) Immature Gran # (Auto) Sodium Potassium Chloride Carbon Dioxide Anion Gap BUN Creatinine Est Cr Clr Drug Dosing Est GFR ( Amer) Est GFR (Non-Af Amer) BUN/Creatinine Ratio Glucose Calcium Ionized Calcium Phosphorus Magnesium Total Bilirubin AST ALT Alkaline Phosphatase Total Creatine Kinase Total Protein Albumin Globulin Albumin/Globulin Ratio PTH Intact 29.8 Current Inpatient Medications Current Inpatient Medications: Current Inpatient Medications Acetaminophen (Acetaminophen 325 Mg Tab) 650 mg PO Q8H PRN PRN Reason: Pain or Fever Stop: 05/16/23 11:50 Haloperidol Lactate (Haloperidol Lactate 5 Mg/Ml 1 Ml Vial) 5 mg IM ONE PRN PRN Reason: agitation Stop: 05/16/23 13:59 Last Admin: 04/16/23 15:45 Dose: 5 mg Sodium Chloride (Nss) 1,000 mls @ 125 mls/hr IV .Q8H BRYCE Stop: 05/16/23 11:50 Last Admin: 04/18/23 06:30 Dose: 125 mls/hr Lorazepam (Lorazepam 1 Mg Tab) 1 mg PO TID PRN PRN Reason: susan/agitation Stop: 05/16/23 13:59 Lorazepam (Lorazepam 2 Mg/1 Ml Vial) 2 mg IM ONE PRN PRN Reason: severe agitation Stop: 05/16/23 15:59 Quetiapine Fumarate (Quetiapine Fumarate 300 Mg Tablet) 600 mg PO HS BRYCE Stop: 05/16/23 20:59 Last Admin: 04/17/23 21:45 Dose: 600 mg
--- NOTE | 2023-04-18 13:21 | Electrocardiogram Report ---
Test Reason : Blood Pressure : / mmHG Vent. Rate : 058 BPM Atrial Rate : 058 BPM P-R Int : 146 ms QRS Dur : 094 ms QT Int : 440 ms P-R-T Axes : 034 064 017 degrees QTc Int : 431 ms Sinus bradycardia with sinus arrhythmia Otherwise normal ECG When compared with ECG of 17-APR-2023 06:29, QT has shortened Confirmed by Jeff Romero ([id number]) on 04/18/2023 1:21:14 PM Referred By: REFERRED SELF Confirmed By:Herbert Romero
--- NOTE | 2023-04-18 15:33 | Hospitalist Progress Note ---
Date of Service April 18, 2023 Assessment & Plan (1) Altered mental status: Plan: 27 year old male with history of bipolar disorder presenting to the ER after being brought by the Police, found wandering in [facility], with altered mental status. He follows with a [facility] PCP and [facility] Psych. ALTERED MENTAL STATUS HISTORY OF BIPOLAR DISORDER stopped taking home Psych medications 4 days prior to arrival His medication list includes Bupropion, Caplyta and Depakote per outpatient [facility] records. CT head negative UDS negative Psychiatry service consulted-appreciate recs -Recommend: -Seroquel 600 mg at bedtime scheduled -As needed Ativan 1 mg 3 times daily for susan/agitation -For severe agitation, Haldol 5mg IM and Lorazepam 2 mg IM. Monitor QTc as able, especially if multiple doses are required. -Patient cannot leave AMA. If patient attempts to leave, security and psych liaison should be called for 302 -Once medically clear, patient needs inpatient psych treatment Remains stable during my examination today and denies any psychiatric symptoms Remains on one-to-one sitter and is not allowed to sign out AMA Will need inpatient psychiatric care Slight fever, leukocytosis on admission no symptoms of infection CXR: negative UA: no UTI blood culture and urine culture-negative so far Remains afebrile and does not have any other symptoms of infection and does not need any antibiotic ACUTE RHABDO No history of trauma CPK elevated at 5245, downtrended to 1472 Continue IV fluids at this time Has been receiving intravenous fluid and increasing oral intake CPK has come down to 1049 from 5245 We will recheck tomorrow and he will be cleared to go to psychiatric floor HEAD, NECK PAIN reported initially at the ER on admission CT head: unremarkable CT cervical spine: unremarkable doubt meningitis at this point likely musculoskeletal pain PRN pain meds Denies any more pain as of today MILD TROPONIN ELEVATION hs-trop peaked at 34. 1, downtrended and currently wnl no cardiac symptoms EKG: non specific T wave depression lead II Echo unremarkable Transaminitis Liver enzymes were elevated, currently downtrending Alcohol level negative denies abdominal pain Unremarkable Liver US Continue to trend with AM CMP Remains minimally elevated DVT prophylaxis: SCDs CODE STATUS: Full Code Disposition: Per psych: "Cannot leave AMA, if he attempts to do so please call security and psych liason as he is likely to meet criteria for 302 warrant". Anticipate medical clearance tomorrow once CPK in normal limits and fluids discontinued. Admission and Anticipated Discharge Date Admission Date: April 16, 2023 Subjective 04/18/2023 The patient was seen and examined in medical telemetry unit He has been feeling much better and denies any significant symptoms His CPK level has come down to around 1000 His IV fluid has been increased and was advised to drink more fluid Review of Systems Review of Systems: All systems reviewed and are unremarkable except as noted below Physical Exam Physical Exam: Lying in bed without any apparent distress Constitutional: well nourished; no acute distress Eyes: PERRL, conjunctivae normal, anicteric sclerae ENMT: external ear and nose normal, oropharynx normal Neck: trachea midline, no thyromegaly Respiratory: no respiratory distress Cardiovascular: Rate/Rhythm: regular rate and regular rhythm; not tachycardic Heart Sounds: normal S1 and normal S2; no murmur Extremities: no edema Gastrointestinal (Abdomen): Inspection/Auscultation: normal bowel sounds; abdomen not distended Percussion/Palpation: abdomen soft; abdomen nontender Musculoskeletal: No acute arthritis involving any of the joint Neurologic: normal touch/pain/proprioception and moves all extremities; no focal motor deficits Lymphatic: no cervical or axillary lymphadenopathy Results & Data Results & Data Vital Signs (Past 12 Hours) Vital Signs Temp Pulse Pulse Resp BP Pulse Ox O2 Del Method 04/18/23 15:19 36.5 C 72 18 126/82 97 Room Air 04/18/23 12:30 36.5 C 63 17 120/82 97 Room Air 04/18/23 07:40 67 04/18/23 07:20 36.6 C 63 16 125/77 99 Room Air Laboratory Results Short CBC 04/18/23 Range/Units 07:03 WBC 4.84 (4.8-10.8) K/ul Hgb 12.8 L (14.0-18.0) g/dl Hct 38.3 L (42.0-52.0) % Plt Count 168 (130-400) K/uL BMP 04/18/23 07:03 Sodium 140 Potassium 4.0 Chloride 109 H Carbon Dioxide 26 BUN 8 Creatinine 0.84 Glucose 96 Calcium 8.9 Cardiac Enzymes 04/18/23 Range/Units 07:03 Total Creatine Kinase 1049 H (30-223) U/L Liver Function 04/18/23 Range/Units 07:03 Total Bilirubin 0.6 (0.2-1.0) mg/dl AST 74 H (13-39) U/L ALT 53 H (7-52) U/L Alkaline Phosphatase 35 (34-104) U/L Albumin 3.8 (3.4-5.0) gm/dl Medications Administered Current Inpatient Medications Acetaminophen (Acetaminophen 325 Mg Tab) 650 mg PO Q8H PRN PRN Reason: Pain or Fever Stop: 05/16/23 11:50 Haloperidol Lactate (Haloperidol Lactate 5 Mg/Ml 1 Ml Vial) 5 mg IM ONE PRN PRN Reason: agitation Stop: 05/16/23 13:59 Last Admin: 04/16/23 15:45 Dose: 5 mg Sodium Chloride (Nss) 1,000 mls @ 150 mls/hr IV .Q6H40M BRYCE Stop: 05/16/23 11:50 Last Admin: 04/18/23 14:39 Dose: 125 mls/hr Lorazepam (Lorazepam 1 Mg Tab) 1 mg PO TID PRN PRN Reason: susan/agitation Stop: 05/16/23 13:59 Lorazepam (Lorazepam 2 Mg/1 Ml Vial) 2 mg IM ONE PRN PRN Reason: severe agitation Stop: 05/16/23 15:59 Quetiapine Fumarate (Quetiapine Fumarate 200 Mg Tab) 800 mg PO HS BRYCE Stop: 05/18/23 20:59
[2023-04-18] MEDS: QUEtiapine FUMARATE 200 MG TAB PO SCH (20:39)
[2023-04-19] MEDS ORDERED: HALOPERIDOL LACTATE 5 MG/ML 1 ML VIAL IM STA (04:17)
[2023-04-19] MEDS: SODIUM CHLORIDE 0.9% 1,000 ML IV SCH ×2 (05:31→11:36)
[2023-04-19 07:50] LABS: Basophils # (auto) 0.02 K/uL (0.00-0.20); Basophils % (auto) 0.4 %; Eosinophils # (auto) 0.29 K/uL (0.00-0.50); Eosinophils % (auto) 6.3 %; Hematocrit (blood only) 37.3 % (42.0-52.0); Hemoglobin 12.5 g/dl (14.0-18.0); Immature Granulocytes # (auto) 0.01 K/uL (0.01-0.20); Immature Granulocytes % (auto) 0.2 %; Lymphocytes # (auto) 2.11 K/uL (1.20-3.40); Mean Corpuscular Hemoglobin 29.5 pg (25.0-34.0); Mean Corpuscular Hgb Conc 33.5 g/dL (32.0-36.0); Mean Platelet Volume 9.2 fL (9.4-12.4); Monocytes # (auto) 0.35 K/uL (0.11-0.59); Monocytes % (auto) 7.6 %; Neutrophils # (auto) 1.81 K/uL (1.40-6.50); Neutrophils % (auto) 39.5 %; Platelet Count 195 K/uL (130-400); RDW Coefficient of Variation 13.3 % (11.5-14.5); RDW Standard Deviation 42.7 fL (36.4-46.3); Red Blood Count 4.24 M/uL (4.70-6.10); White Blood Count 4.59 K/ul (4.8-10.8)
[2023-04-19 08:04] LABS: Albumin Globulin Ratio 1.4 (0.9-2); BUN Creatinine Ratio 10.5 (10-20); Bilirubin,Total 0.6 mg/dl (0.2-1.0); Calcium 9.1 mg/dl (8.6-10.3); Creatinine Clr Calc Pharmacy 145.6 ml/min; Est GFR (African American) 135.8 ml/min; Est GFR (Non-African American) 117.2 ml/min; Globulin 2.8 gm/dl (2.5-4.0); Magnesium 1.8 mg/dl (1.7-2.4); Potassium 3.7 mmol/L (3.5-5.1); Total Protein 6.8 gm/dl (6.0-8.3)
--- NOTE | 2023-04-19 10:45 | Psychiatric Progress Note ---
Date of Service April 19, 2023 Impression / Recommendations Impression Diagnostically seems consistent with episode of acute susan with psychosis in setting of known history of BPAD type I with similar presentations over the last 5+ years for confusion, wandering and disorganized behaviors during episodes of susan with psychosis. Given his reluctance to consider most psychiatric medications recommend trial of seroquel tonight, which he at least does not state opposition to, in effort to get him some sleep which should help with some of his symptoms. Agree with medical workup to ensure no other contributing causes for AMS but suspect presentation is likely due to acute susan with psychosis in which case psychiatric hospitalization will be needed once medically stable. 04/19/2023: Continues to struggle with sleep, even with higher dose of Seroquel, consistent with suspected episode of acute susan. Some psychomotor restlessness last night and belief that he was in the wrong room but responded to reassurance. Now medically stable so psychiatric bed search to start. The patient remains hospitalized on a completed 302 involuntary commitment, which if not extended, will on 04/22/2023 at 11:03am. This patient must remain on safety precautions with a 1-on-1 and is unable to leave the hospital AMA. Overall, I spent a total of 25 minutes with this case including review of chart records, review of labwork, direct evaluation of the patient at bedside,discussion with the psychiatric liason during clinical rounds, discussion with the hospitalist provider and RN and documentation in the electronic health record. (1) Bipolar affective disorder, manic, severe, with psychotic behavior: Plan -Now medically stable, delegate to begin 302 bed search -He is on a 302 commitment, cannot leave AMA if he attempts to do so please call security, needs to remain on 1-on-1 given high elopement risk due to behavioral disorganization and 302 commitment -Continue with Seroquel to 800mg po HS -Recommend ativan 1mg po TID prn for susan/agitation -Valproic acid level is pending -For acute behavioral emergency: Haloperidol 5 mg IM and Lorazepam 2 mg IM. Monitor QTc as able, especially if multiple doses are required. Interval History Identifying Information 27 yo man with history of BPAD type I admitted medically for altered mental status with head/neck pain and found to have non specific EKG changes. Psychiatry consulted for recommendations given history of BPAD type I. Chief Complaint sleeping Subjective Subjective Patient was seen & assessed and interval progress reviewed. Last night became confused and felt his room was not his room and tried to go into the hallway requiring RN and security. He did not require any IM medications, was able to return to his room and sat back down on his bed. He did take the higher dose of Seroquel last night. This morning per 1-on-1 in his room he ate breakfast and then just fell asleep and given need for sleep I did not feel it was therapeutic to wake him. Physical Exam Psychiatric sleeping in bed Vital Signs (Past 24 Hours) Last Vital Signs Temp 36.3 C L 04/19/23 07:26 Pulse 52 L 04/19/23 10:01 Resp 18 04/19/23 07:26 BP 124/82 04/19/23 07:26 Pulse Ox 97 04/19/23 07:26 O2 Del Method Room Air 04/19/23 07:26 Results & Data ([facility]) Laboratory Results Laboratory Results - last 24 hr 04/19/23 04/19/23 04/19/23 06:54 06:54 06:54 WBC 4.59 L RBC 4.24 L Hgb 12.5 L Hct 37.3 L MCV 88.0 MCH 29.5 MCHC 33.5 RDW Std Deviation 42.7 RDW Coeff of Paco 13.3 Plt Count 195 MPV 9.2 L Immature Gran % (Auto) 0.2 Neut % (Auto) 39.5 Lymph % (Auto) 46.0 [place] % (Auto) 7.6 Eos % (Auto) 6.3 Baso % (Auto) 0.4 Neut # (Auto) 1.81 Lymph # (Auto) 2.11 [place] # (Auto) 0.35 Eos # (Auto) 0.29 Baso # (Auto) 0.02 Immature Gran # (Auto) 0.01 Sodium 140 Potassium 3.7 Chloride 107 Carbon Dioxide 28 Anion Gap 5 BUN 9 Creatinine 0.86 Est Cr Clr Drug Dosing 145.6 Est GFR ( Amer) 135.8 Est GFR (Non-Af Amer) 117.2 BUN/Creatinine Ratio 10.5 Glucose 91 Calcium 9.1 Ionized Calcium 1.25 Phosphorus 4.0 Magnesium 1.8 Total Bilirubin 0.6 AST 54 H ALT 47 Alkaline Phosphatase 37 Total Creatine Kinase 635 H Total Protein 6.8 Albumin 4.0 Globulin 2.8 Albumin/Globulin Ratio 1.4 Current Inpatient Medications Current Inpatient Medications: Current Inpatient Medications Acetaminophen (Acetaminophen 325 Mg Tab) 650 mg PO Q8H PRN PRN Reason: Pain or Fever Stop: 05/16/23 11:50 Haloperidol Lactate (Haloperidol Lactate 5 Mg/Ml 1 Ml Vial) 5 mg IM ONE PRN PRN Reason: agitation Stop: 05/16/23 13:59 Last Admin: 04/16/23 15:45 Dose: 5 mg Sodium Chloride (Nss) 1,000 mls @ 150 mls/hr IV .Q6H40M [facility] Stop: 05/16/23 11:50 Last Admin: 04/19/23 05:31 Dose: 125 mls/hr Lorazepam (Lorazepam 1 Mg Tab) 1 mg PO TID PRN PRN Reason: susan/agitation Stop: 05/16/23 13:59 Lorazepam (Lorazepam 2 Mg/1 Ml Vial) 2 mg IM ONE PRN PRN Reason: severe agitation Stop: 05/16/23 15:59 Quetiapine Fumarate (Quetiapine Fumarate 200 Mg Tab) 800 mg PO HS [facility] Stop: 05/18/23 20:59 Last Admin: 04/18/23 20:39 Dose: 800 mg
--- NOTE | 2023-04-19 11:31 | Hospitalist Progress Note ---
Date of Service April 19, 2023 Assessment & Plan (1) Altered mental status: Plan: 27 year old male with history of bipolar disorder presenting to the ER after being brought by the Police, found wandering in [facility], with altered mental status. He follows with a [facility] PCP and [facility] Psych. ALTERED MENTAL STATUS HISTORY OF BIPOLAR DISORDER stopped taking home Psych medications 4 days prior to arrival His medication list includes Bupropion, Caplyta and Depakote per outpatient [facility] records. CT head negative UDS negative Psychiatry service consulted-appreciate recs -Recommend: -Seroquel 600 mg at bedtime scheduled -As needed Ativan 1 mg 3 times daily for susan/agitation -For severe agitation, Haldol 5mg IM and Lorazepam 2 mg IM. Monitor QTc as able, especially if multiple doses are required. -Patient cannot leave AMA. If patient attempts to leave, security and psych liaison should be called for 302 -Once medically clear, patient needs inpatient psych treatment Remains stable during my examination today and denies any psychiatric symptoms Remains on one-to-one sitter and is not allowed to sign out AMA Will need inpatient psychiatric care Medically stable to go to psychiatric unit Slight fever, leukocytosis on admission no symptoms of infection CXR: negative UA: no UTI blood culture and urine culture-negative so far Remains afebrile and does not have any other symptoms of infection and does not need any antibiotic No more fever and or chills and blood counts are unremarkable ACUTE RHABDO No history of trauma CPK elevated at 5245, downtrended to 1472 Continue IV fluids at this time Has been receiving intravenous fluid and increasing oral intake CPK has come down to 1049 from 5245 We will recheck tomorrow and he will be cleared to go to psychiatric floor CPK is down to 635-advised to continue drinking more water HEAD, NECK PAIN reported initially at the ER on admission CT head: unremarkable CT cervical spine: unremarkable doubt meningitis at this point likely musculoskeletal pain PRN pain meds Denies any more pain as of today MILD TROPONIN ELEVATION hs-trop peaked at 34. 1, downtrended and currently wnl no cardiac symptoms EKG: non specific T wave depression lead II Echo unremarkable Transaminitis Liver enzymes were elevated, currently downtrending Alcohol level negative denies abdominal pain Unremarkable Liver US Continue to trend with AM CMP Remains minimally elevated-AST is mildly elevated at 54 and everything else normal DVT prophylaxis: SCDs CODE STATUS: Full Code Disposition: Per psych: "Cannot leave AMA, if he attempts to do so please call security and psych liason as he is likely to meet criteria for 302 warrant". Anticipate medical clearance tomorrow once CPK in normal limits and fluids discontinued. Medically cleared to go to psych floor Admission and Anticipated Discharge Date Admission Date: April 16, 2023 Subjective 04/18/2023 The patient was seen and examined in medical telemetry unit He has been feeling much better and denies any significant symptoms His CPK level has come down to around 1000 His IV fluid has been increased and was advised to drink more fluid 04/19/2023 The patient was seen and examined in medical telemetry unit He complains to have lack of sleep, anxiety and restless at times but denies any other significant symptoms He is medically cleared to be discharged to inpatient psych unit Review of Systems Review of Systems: All systems reviewed and are unremarkable except as noted below Physical Exam Physical Exam: Sitting at the edge of the bed without any acute distress Constitutional: well nourished; no acute distress Eyes: PERRL, conjunctivae normal, anicteric sclerae ENMT: external ear and nose normal, oropharynx normal Neck: trachea midline, no thyromegaly Respiratory: no respiratory distress Cardiovascular: Rate/Rhythm: regular rate and regular rhythm; not tachycardic Heart Sounds: normal S1 and normal S2; no murmur Extremities: + edema (Trace edema bilaterally) Gastrointestinal (Abdomen): Inspection/Auscultation: normal bowel sounds; abdomen not distended Percussion/Palpation: abdomen soft; abdomen nontender Neurologic: normal touch/pain/proprioception and moves all extremities; no focal motor deficits Lymphatic: no cervical or axillary lymphadenopathy Results & Data Results & Data Vital Signs (Past 12 Hours) Vital Signs Temp Pulse Pulse Resp BP Pulse Ox O2 Del Method 04/19/23 10:01 52 L 04/19/23 09:55 67 04/19/23 07:26 36.3 C L 57 L 18 124/82 97 Room Air 04/19/23 02:55 36.3 C L 88 14 121/81 96 Room Air Laboratory Results Short CBC 04/19/23 Range/Units 06:54 WBC 4.59 L (4.8-10.8) K/ul Hgb 12.5 L (14.0-18.0) g/dl Hct 37.3 L (42.0-52.0) % Plt Count 195 (130-400) K/uL BMP 04/19/23 06:54 Sodium 140 Potassium 3.7 Chloride 107 Carbon Dioxide 28 BUN 9 Creatinine 0.86 Glucose 91 Calcium 9.1 Cardiac Enzymes 04/19/23 Range/Units 06:54 Total Creatine Kinase 635 H (30-223) U/L Liver Function 04/19/23 Range/Units 06:54 Total Bilirubin 0.6 (0.2-1.0) mg/dl AST 54 H (13-39) U/L ALT 47 (7-52) U/L Alkaline Phosphatase 37 (34-104) U/L Albumin 4.0 (3.4-5.0) gm/dl Medications Administered Current Inpatient Medications Acetaminophen (Acetaminophen 325 Mg Tab) 650 mg PO Q8H PRN PRN Reason: Pain or Fever Stop: 05/16/23 11:50 Haloperidol Lactate (Haloperidol Lactate 5 Mg/Ml 1 Ml Vial) 5 mg IM ONE PRN PRN Reason: agitation Stop: 05/16/23 13:59 Last Admin: 04/16/23 15:45 Dose: 5 mg Lorazepam (Lorazepam 1 Mg Tab) 1 mg PO TID PRN PRN Reason: susan/agitation Stop: 05/16/23 13:59 Lorazepam (Lorazepam 2 Mg/1 Ml Vial) 2 mg IM ONE PRN PRN Reason: severe agitation Stop: 05/16/23 15:59 Quetiapine Fumarate (Quetiapine Fumarate 200 Mg Tab) 800 mg PO HS BRYCE Stop: 05/18/23 20:59 Last Admin: 04/18/23 20:39 Dose: 800 mg
--- NOTE | 2023-04-19 17:13 | Electrocardiogram Report ---
Test Reason : Blood Pressure : / mmHG Vent. Rate : 058 BPM Atrial Rate : 058 BPM P-R Int : 156 ms QRS Dur : 096 ms QT Int : 396 ms P-R-T Axes : 041 084 069 degrees QTc Int : 388 ms Sinus bradycardia with sinus arrhythmia Early repolarization Otherwise normal ECG When compared with ECG of 18-APR-2023 05:45, No significant change was found Confirmed by Jeff Romero ([id number]) on 04/19/2023 5:12:42 PM Referred By: REFERRED SELF Confirmed By:Herbert Romero
[2023-04-19] MEDS: QUEtiapine FUMARATE 200 MG TAB PO SCH (21:29)
[2023-04-20 08:36] LABS: Basophils # (auto) 0.04 K/uL (0.00-0.20); Basophils % (auto) 0.6 %; Eosinophils # (auto) 0.31 K/uL (0.00-0.50); Hemoglobin 15.1 g/dl (14.0-18.0); Immature Granulocytes # (auto) 0.01 K/uL (0.01-0.20); Immature Granulocytes % (auto) 0.2 %; Lymphocytes # (auto) 1.76 K/uL (1.20-3.40); Lymphocytes % (auto) 28.3 %; Mean Corpuscular Hemoglobin 29.5 pg (25.0-34.0); Mean Corpuscular Hgb Conc 34.3 g/dL (32.0-36.0); Mean Corpuscular Volume 85.9 fL (80.0-100.0); Monocytes # (auto) 0.35 K/uL (0.11-0.59); Monocytes % (auto) 5.6 %; Neutrophils # (auto) 3.75 K/uL (1.40-6.50); Neutrophils % (auto) 60.3 %; Platelet Count 214 K/uL (130-400); RDW Coefficient of Variation 13.2 % (11.5-14.5); RDW Standard Deviation 41.1 fL (36.4-46.3); Red Blood Count 5.12 M/uL (4.70-6.10); White Blood Count 6.22 K/ul (4.8-10.8)
[2023-04-20 08:51] LABS: Albumin Globulin Ratio 1.4 (0.9-2); Albumin Level 4.8 gm/dl (3.4-5.0); Bilirubin,Total 0.6 mg/dl (0.2-1.0); Calcium 9.9 mg/dl (8.6-10.3); Creatinine Clr Calc Pharmacy 136.1 ml/min; Est GFR (African American) 129.8 ml/min; Globulin 3.5 gm/dl (2.5-4.0); Phosphorus 4.6 mg/dl (2.5-4.9); Potassium 3.7 mmol/L (3.5-5.1); Total Protein 8.3 gm/dl (6.0-8.3)
--- NOTE | 2023-04-20 08:56 | Electrocardiogram Report ---
Test Reason : Blood Pressure : / mmHG Vent. Rate : 057 BPM Atrial Rate : 057 BPM P-R Int : 168 ms QRS Dur : 096 ms QT Int : 414 ms P-R-T Axes : 016 056 009 degrees QTc Int : 402 ms Sinus bradycardia with sinus arrhythmia Otherwise normal ECG When compared with ECG of 19-APR-2023 11:05, ST no longer elevated in Inferior leads T wave inversion now evident in Inferior leads Confirmed by Jeff Romero ([id number]) on 04/20/2023 8:55:20 AM Referred By: REFERRED SELF Confirmed By:Herbert Romero
[2023-04-20 08:58] LABS: Troponin I High Sensitivity 3.1 pg/ml (0-20)
--- NOTE | 2023-04-20 12:34 | Psychiatric Progress Note ---
Date of Service April 20, 2023 Impression / Recommendations Impression Diagnostically seems consistent with episode of acute susan with psychosis in setting of known history of BPAD type I with similar presentations over the last 5+ years for confusion, wandering and disorganized behaviors during episodes of susan with psychosis. Given his reluctance to consider most psychiatric medications recommend trial of seroquel tonight, which he at least does not state opposition to, in effort to get him some sleep which should help with some of his symptoms. Agree with medical workup to ensure no other contributing causes for AMS but suspect presentation is likely due to acute susan with psychosis in which case psychiatric hospitalization will be needed once medically stable. 04/20/2023: Continues to struggle with sleep, even with higher dose of Seroquel, consistent with suspected episode of acute susan and ongoing very poor insight, psychomotor restlessness, requiring frequent redirection by 1-on-1. Remains medically stable, bed search via [facility] is ongoing. The patient remains hospitalized on a completed 302 involuntary commitment, which if not extended, will on 04/22/2023 at 11:03am. This patient must remain on safety precautions with a 1-on-1 and is unable to leave the hospital AMA. Overall, I spent a total of 25 minutes with this case including review of chart records, review of labwork, direct evaluation of the patient at bedside,discussion with the psychiatric liason during clinical rounds, discussion with the hospitalist provider and RN and documentation in the electronic health record. (1) Bipolar affective disorder, manic, severe, with psychotic behavior: Plan -302 bed search ongoing -He is on a 302 commitment, cannot leave AMA if he attempts to do so please call security, needs to remain on 1-on-1 given high elopement risk due to behavioral disorganization and 302 commitment -Continue with Seroquel to 800mg po HS -Recommend ativan 1mg po TID prn for susan/agitation -Valproic acid level is pending -For acute behavioral emergency: Haloperidol 5 mg IM and Lorazepam 2 mg IM. Monitor QTc as able, especially if multiple doses are required. Interval History Identifying Information 27 yo man with history of BPAD type I admitted medically for altered mental status with head/neck pain and found to have non specific EKG changes. Psychiatry consulted for recommendations given history of BPAD type I. Chief Complaint "I'm doing fine". Subjective Subjective Patient was seen & assessed and interval progress reviewed. Very poor sleep last night even after taking Seroquel per 1-on-1. Attempted to leave his room this morning and required redirection. Ongoing very poor insight into need for inpatient psych treatment. Did allow RN to get COVID swab. He denies any medication issues. Physical Exam Psychiatric Orientation: alert, oriented to person, oriented to place, oriented to time and + guarded Apperance: appropriately dressed and + disheveled Eye Contact: good eye contact (intense) Motor Behavior: no abnormal motor movements Speech: + abnormal rate/rhythm/volume of speech (brief) Affect: + constricted affect Thought Process: + thought blocking (less evident today), + circumstantial thought process and + looseness of associations Thought Content: reality based without delusions Suicidal Thoughts: denies suicidal thoughts Homicidal Thoughts: denies homicidal thoughts Hallucinations: + auditory hallucinations (unclear if responding) Cognition: language grossly intact; + recent memory not intact and + attention not intact Insight: + severely impaired insight Judgment: + severely impaired judgement Vital Signs (Past 24 Hours) Last Vital Signs Temp 36.1 C L 04/20/23 06:54 Pulse 68 04/20/23 06:54 Resp 19 04/20/23 06:54 BP 133/84 04/20/23 06:54 Pulse Ox 98 04/20/23 06:54 O2 Del Method Room Air 04/20/23 06:54 Results & Data ([facility]) Laboratory Results Laboratory Results - last 24 hr 04/20/23 04/20/23 04/20/23 08:01 08:01 08:01 WBC 6.22 RBC 5.12 Hgb 15.1 Hct 44.0 MCV 85.9 MCH 29.5 MCHC 34.3 RDW Std Deviation 41.1 RDW Coeff of Paco 13.2 Plt Count 214 MPV 9.0 L Immature Gran % (Auto) 0.2 Neut % (Auto) 60.3 Lymph % (Auto) 28.3 [place] % (Auto) 5.6 Eos % (Auto) 5.0 Baso % (Auto) 0.6 Neut # (Auto) 3.75 Lymph # (Auto) 1.76 [place] # (Auto) 0.35 Eos # (Auto) 0.31 Baso # (Auto) 0.04 Immature Gran # (Auto) 0.01 Sodium 139 Potassium 3.7 Chloride 104 Carbon Dioxide 27 Anion Gap 8 BUN 12 Creatinine 0.92 Est Cr Clr Drug Dosing 136.1 Est GFR ( Amer) 129.8 Est GFR (Non-Af Amer) 112.0 BUN/Creatinine Ratio 13.0 Glucose 97 Calcium 9.9 Ionized Calcium 1.21 Phosphorus 4.6 Magnesium 2.0 Total Bilirubin 0.6 AST 46 H ALT 48 Alkaline Phosphatase 46 Total Creatine Kinase 410 H Troponin I High Sens 3.1 Total Protein 8.3 D Albumin 4.8 Globulin 3.5 Albumin/Globulin Ratio 1.4 SARS-CoV-2 (PCR) 04/20/23 Unknown WBC RBC Hgb Hct MCV MCH MCHC RDW Std Deviation RDW Coeff of Paco Plt Count MPV Immature Gran % (Auto) Neut % (Auto) Lymph % (Auto) [place] % (Auto) Eos % (Auto) Baso % (Auto) Neut # (Auto) Lymph # (Auto) [place] # (Auto) Eos # (Auto) Baso # (Auto) Immature Gran # (Auto) Sodium Potassium Chloride Carbon Dioxide Anion Gap BUN Creatinine Est Cr Clr Drug Dosing Est GFR ( Amer) Est GFR (Non-Af Amer) BUN/Creatinine Ratio Glucose Calcium Ionized Calcium Phosphorus Magnesium Total Bilirubin AST ALT Alkaline Phosphatase Total Creatine Kinase Troponin I High Sens Total Protein Albumin Globulin Albumin/Globulin Ratio SARS-CoV-2 (PCR) Pending Current Inpatient Medications Current Inpatient Medications: Current Inpatient Medications Acetaminophen (Acetaminophen 325 Mg Tab) 650 mg PO Q8H PRN PRN Reason: Pain or Fever Stop: 05/16/23 11:50 Haloperidol Lactate (Haloperidol Lactate 5 Mg/Ml 1 Ml Vial) 5 mg IM ONE PRN PRN Reason: agitation Stop: 05/16/23 13:59 Last Admin: 04/16/23 15:45 Dose: 5 mg Lorazepam (Lorazepam 1 Mg Tab) 1 mg PO TID PRN PRN Reason: susan/agitation Stop: 05/16/23 13:59 Lorazepam (Lorazepam 2 Mg/1 Ml Vial) 2 mg IM ONE PRN PRN Reason: severe agitation Stop: 05/16/23 15:59 Quetiapine Fumarate (Quetiapine Fumarate 200 Mg Tab) 800 mg PO HS BRYCE Stop: 05/18/23 20:59 Last Admin: 04/19/23 21:29 Dose: 800 mg
--- NOTE | 2023-04-20 13:07 | Hospitalist Progress Note ---
Date of Service April 20, 2023 Assessment & Plan (1) Bipolar affective disorder, manic, severe, with psychotic behavior: Plan: per Dr. Saini's notes with addendum: 27 year old male with history of bipolar disorder presenting to the ER after being brought by the Police, found wandering in [facility], with altered mental status. He follows with a [facility] PCP and [facility] Psych. ALTERED MENTAL STATUS HISTORY OF BIPOLAR DISORDER stopped taking home Psych medications 4 days prior to arrival His medication list includes Bupropion, Caplyta and Depakote per outpatient [facility] records. CT head negative UDS negative Psychiatry service consulted-appreciate recs -Recommend: -Seroquel 600 mg at bedtime scheduled -As needed Ativan 1 mg 3 times daily for susan/agitation -For severe agitation, Haldol 5mg IM and Lorazepam 2 mg IM. Monitor QTc as able, especially if multiple doses are required. -Patient cannot leave AMA. If patient attempts to leave, security and psych liaison should be called for 302 -Once medically clear, patient needs inpatient psych treatment Remains stable during my examination today and denies any psychiatric symptoms Remains on one-to-one sitter and is not allowed to sign out AMA Will need inpatient psychiatric care Medically stable to go to psychiatric unit Slight fever, leukocytosis on admission no symptoms of infection CXR: negative UA: no UTI blood culture and urine culture-negative so far Remains afebrile and does not have any other symptoms of infection and does not need any antibiotic No more fever and or chills and blood counts are unremarkable 04/20 stable from medical standpoint for discharge awaiting acceptance to inpatient Psych facility ACUTE RHABDOMYOLYSIS No history of trauma CPK elevated at 5245, downtrended to 1472 Continue IV fluids at this time Has been receiving intravenous fluid and increasing oral intake CPK trended down resolved HEAD, NECK PAIN reported initially at the ER on admission CT head: unremarkable CT cervical spine: unremarkable doubt meningitis at this point likely musculoskeletal pain PRN pain meds - resolved MILD TROPONIN ELEVATION hs-trop peaked at 34. 1, downtrended and currently wnl no cardiac symptoms EKG: non specific T wave depression lead II Echo unremarkable Transaminitis Liver enzymes were elevated, currently downtrending Alcohol level negative denies abdominal pain Unremarkable Liver US Continue to trend with AM CMP Remains minimally elevated-AST is mildly elevated at 54 and everything else normal DVT prophylaxis:SCDs CODE STATUS:Full Code Disposition:Per psych: "Cannot leave AMA, if he attempts to do so please call security and psych liason as he is likely to meet criteria for 302 warrant". Anticipate medical clearance tomorrow once CPK in normal limits and fluids discontinued. Medically cleared to go to psych unit Admission and Anticipated Discharge Date Admission Date: April 16, 2023 Subjective ff up for bipolar disorder etc seen with RESIDENTIAL CAREGIVER at bedside throughout whole encounter trying to leave his room this morning per RN, agitated seen fixing his bed, calm, cooperative oriented x 2 answering most questions appropriately states he feels fine overall no chest pain, dyspnea, palpitations, dizziness no pain states he is bored here, would like to go home explained that he needs inpatient psych care at this time patient agreed Review of Systems Review of Systems: all noted and negative except for above Physical Exam Physical Exam: General- oriented x 2, not in distress, speaks in sentences with no effort or accessory muscle use Eyes- anicteric Neck- no JVD Lungs- clear breath sounds bilaterally, no rales/wheezes Heart- normal rate, regular rhythm; no murmurs Abdomen- normal bowel sounds, nondistended, soft, nontender Extremities- no pretibial edema, no calf tenderness Neuro- alert, oriented x 3; no gross focal neurologic deficits Skin- warm & dry Psych- somewhat flat affect Results & Data Results & Data Vital Signs (Past 12 Hours) Vital Signs Temp Pulse Resp BP BP Pulse Ox O2 Del Method 04/20/23 06:54 36.1 C L 68 19 133/84 98 Room Air 04/20/23 02:44 36.4 C L 55 L 18 144/93 H 98 Room Air all noted and reviewed including below
--- NOTE | 2023-04-20 14:18 | Discharge Summary ---
Discharge Summary Date of Service April 20, 2023 Notes For Next Care Provider Medication Changes From Visit NEW MEDICATION: Seroquel DISCONTINUED MEDICATIONS: Bupriopion Divalproex Caplyta Admission HPI Per Admitting Provider 27 year old male with history of bipolar disorder presenting at the ER after being brought by the Police, found wandering in [facility], with altered mental status. He follows with [facility] PCP and [facility] Psych. He followed up with his PCP last March 28, 2023 for fatigue. His medication list includes Bupropion, Caplyta and Depakote per outpatient [facility] records. He was found by the Police walking around [facility] [facility], seems confused and reporting head and neck pain. At the ER, patient not clear on why he was brought to the hospital and still confused. He denied any chest pain, shortness of breath, numbness, tingling, weakness, nausea/vomiting, headache, dizziness, or other concerning symptoms. Apparently, patient has been missing for the past 2 days. On my exam, patient seen resting in bed, watching TV, calm, cooperative. Oriented x 2, but gets confused and has poor recollection on many things. He can tell me his home address and his parents' names. He states that he left his car at [facility] and his other car at [facility] to request for new car keys as he lost them at [facility] the other day. He adds that he has just been walking around [facility] the whole day yesterday, because "he does not know what to do". Patient stopped taking his psych meds 4 days ago as they are making his head "numb". Denies depression, anxiety, suicidal ideation. Patient denies headache, neck pain or any other pain. Denies other symptoms. He gave me permission to call his parents to let them know he is in the hospital for psych evaluation as well as cardiac and liver testing. Admission Exam Per Admitting Provider General- oriented x 3, not in distress, speaks in sentences with no effort or accessory muscle use Head- atraumatic Eyes- PERRL, EOMI, anicteric ENT- oropharynx clear Neck- supple, no JVD, no adenopathy, no thyromegaly; carotids +2/2, no bruits appreciated Lungs- clear to auscultation bilaterally, no rales/wheezes Heart- normal rate, regular rhythm; no murmur, no gallop, no rub appreciated Abdomen- normal bowel sounds, nondistended, soft, nontender, no masses or hepatosplenomegaly Extremities- no pretibial edema, no calf tenderness; peripheral pulses intact Neuro- alert, oriented x 3; CN 2-12 grossly intact; motor 5/5 bilaterally;sensation 100% on all extremities; no other gross focal neurologic deficits Skin- warm & dry Principal Dx & Hospital Course #1 = Principal Diagnosis (1) Bipolar affective disorder, manic, severe, with psychotic behavior: per Dr. Saini's notes with addendum: 27 year old male with history of bipolar disorder presenting to the ER after being brought by the Police, found wandering in [facility], with altered mental status. He follows with a [facility] PCP and [facility] Psych. ALTERED MENTAL STATUS HISTORY OF BIPOLAR DISORDER stopped taking home Psych medications 4 days prior to arrival His medication list includes Bupropion, Caplyta and Depakote per outpatient [facility] records. CT head negative UDS negative Psychiatry service consulted-appreciate recs -Recommend: -Seroquel 600 mg at bedtime scheduled -As needed Ativan 1 mg 3 times daily for susan/agitation -For severe agitation, Haldol 5mg IM and Lorazepam 2 mg IM. Monitor QTc as able, especially if multiple doses are required. -Patient cannot leave AMA. If patient attempts to leave, security and psych liaison should be called for 302 -Once medically clear, patient needs inpatient psych treatment Remains stable during my examination today and denies any psychiatric symptoms Remains on one-to-one sitter and is not allowed to sign out AMA Will need inpatient psychiatric care Medically stable to go to psychiatric unit Slight fever, leukocytosis on admission no symptoms of infection CXR: negative UA: no UTI blood culture and urine culture-negative so far Remains afebrile and does not have any other symptoms of infection and does not need any antibiotic No more fever and or chills and blood counts are unremarkable 04/20 stable from medical standpoint for discharge awaiting acceptance to inpatient Psych facility ACUTE RHABDOMYOLYSIS No history of trauma CPK elevated at 5245, downtrended to 1472 Continue IV fluids at this time Has been receiving intravenous fluid and increasing oral intake CPK trended down resolved HEAD, NECK PAIN reported initially at the ER on admission CT head: unremarkable CT cervical spine: unremarkable doubt meningitis at this point likely musculoskeletal pain PRN pain meds - resolved MILD TROPONIN ELEVATION hs-trop peaked at 34. 1, downtrended and currently wnl no cardiac symptoms EKG: non specific T wave depression lead II Echo unremarkable Transaminitis Liver enzymes were elevated, currently downtrending Alcohol level negative denies abdominal pain Unremarkable Liver US Continue to trend with AM CMP Remains minimally elevated-AST is mildly elevated at 54 and everything else normal DVT prophylaxis:SCDs CODE STATUS:Full Code Disposition:Per psych: "Cannot leave AMA, if he attempts to do so please call security and psych liason as he is likely to meet criteria for 302 warrant". Anticipate medical clearance tomorrow once CPK in normal limits and fluids discontinued. Medically cleared to go to psych unit Discharge Exam General- oriented x 2, not in distress, speaks in sentences with no effort or accessory muscle use Eyes- anicteric Neck- no JVD Lungs- clear breath sounds bilaterally, no rales/wheezes Heart- normal rate, regular rhythm; no murmurs Abdomen- normal bowel sounds, nondistended, soft, nontender Extremities- no pretibial edema, no calf tenderness Neuro- alert, oriented x 3; no gross focal neurologic deficits Skin- warm & dry Psych- somewhat flat affect Updated Medication List Medication Instructions Recorded Confirmed Type Vitamin D3 2,000 units PO DAILY 03/27/19 04/16/23 History divalproex 500 mg tablet,delayed 1,000 mg PO HS 12/17/22 04/16/23 History release lumateperone 42 mg capsule 42 mg PO DAILY 12/17/22 04/16/23 History (Caplyta) bupropion HCl 150 mg 24 hr tablet, 150 mg PO QAM 04/16/23 04/16/23 History extended release quetiapine 200 mg tablet (Seroquel) 800 mg PO HS 30 days #120 tabs 04/20/23 Rx Hospital Stay Data Consultations 04/16/23 07:02 ED Decision to Admit Stat 04/16/23 11:51 Consult Psychiatry Routine Diagnostic Imagining Performed 04/16/23 03:05 CT cervical spine wo con Stat FINDINGS: Vertebrae: Unremarkable. No acute fracture. Discs/spinal canal/neural foramina: No acute findings. No spinal canal stenosis. Soft tissues: Unremarkable. IMPRESSION: Normal cervical spine CT. CT head/brain wo con Stat FINDINGS: Brain: Unremarkable. No acute intracranial hemorrhage, edema or abnormal mass-effect. Ventricles: Unremarkable. No ventriculomegaly. Bones/joints: Unremarkable. No acute fracture. Soft tissues: Unremarkable. Sinuses: Unremarkable as visualized. No acute sinusitis. Mastoid air cells: Unremarkable as visualized. No mastoid effusion. IMPRESSION: Normal head/brain CT. 04/16/23 07:58 US liver Routine FINDINGS: Pancreas: The pancreas is mostly obscured by bowel gas. Liver: 17.4 cm in length. Gallbladder: No gallbladder wall thickening. No gallstones. CBD: 0.4 cm Right kidney: No hydronephrosis. IMPRESSION: No significant abnormality identified within the right upper quadrant. ACT 112: Negative or not required by law. Pending Results Patient Have Any Pending Studies at Discharge: No Discharge Instructions Given to Patient (Per Discharging Provider) PLEASE REFER TO ACCOMPANYING HOSPITAL DISCHARGE SUMMARY. Total Time Total Time Spent Total Time Spent (In Minutes): >30 minutes
[2023-04-20] MEDS: HALOPERIDOL LACTATE 5 MG/ML 1 ML VIAL IM PRN (19:00)
[2023-04-21 17:42] LABS: Valproic Acid, Free <4.0 mg/L (4.8-17.3); Valproic Acid, Total <4.0 mg/L (50.0-100.0)
== END 2023-04-20 19:21 | DRG 552 ==
LOC: ED 02:52 → EDINP 07:51 → SUATTDRO 07:51 → 2N 11:51